=== PATIENT | female | born 1940 | race Caucasian/White ===

== ENCOUNTER 2016-05-10 19:02 | Emergency (ER) | payer MEDICARE, OTHER ==
[~2016-05-10 19:02] MED LIST: ACETAMINOPHEN500 MG PO; AMLODIPINE BESYL5 MG PO; CITALOPRAM HYDR40 MG PO; CLONAZEPAM1 MG PO; CYCLOBENZAPRINE10 MG PO; DITROPAN XL5 MG PO; DRAMAMINE LESS25 MG PO; LEVOTHYROXINE75 MCG PO; MAPAP500 M1 PO; MIRALAX EQUIVAL17 GM PO; NORCO1 TA2 PO; OXYCODONE HCL5 MG PO; PRAVACHOL40 MG; PRAVACHOL40 MG PO; SEROQUEL25 MG PO; SEROQUEL50 MG PO; SLOW-MAG PO; TRAZODONE HCL50 MG PO; VENLAFAXINE HC150 M1 PO; [UNRECOGNIZED DRUG - OTHER]
--- NOTE | 2016-05-10 20:17 | DIAGNOSTIC IMAGING REPORT ---
PROCEDURE: CT HEAD WITHOUT CONTRAST INDICATION: Left facial bruising, initial encounter TECHNIQUE: Noncontrast axial images with sagittal and coronal reformations. COMPARISON: Head CT 03/01/2015 FINDINGS: Left frontal scalp contusion. Mild cortical atrophy. Progression of moderate ventriculomegaly. Decreased attenuation of the periventricular white matter. There is no acute hemorrhage, acute CVA, mass or midline shift. Visualized sinuses and mastoids are clear. IMPRESSION: 1. Left frontal scalp contusion 2. Mild atrophy with moderate chronic ischemic changes and progression of moderate ventriculomegaly 3. Findings discussed with Edith Garcia at 08:19 p.m.[facility] Standard Time
--- NOTE | 2016-05-10 20:17 | DIAGNOSTIC IMAGING REPORT ---
PROCEDURE: CT HEAD WITHOUT CONTRAST INDICATION: Left facial bruising, initial encounter TECHNIQUE: Noncontrast axial images with sagittal and coronal reformations. COMPARISON: Head CT 03/01/2015 FINDINGS: Left frontal scalp contusion. Mild cortical atrophy. Progression of moderate ventriculomegaly. Decreased attenuation of the periventricular white matter. There is no acute hemorrhage, acute CVA, mass or midline shift. Visualized sinuses and mastoids are clear. IMPRESSION: 1. Left frontal scalp contusion 2. Mild atrophy with moderate chronic ischemic changes and progression of moderate ventriculomegaly 3. Findings discussed with Edith Garcia at 08:19 p.m.[facility] Standard Time
--- NOTE | 2016-05-10 20:21 | DIAGNOSTIC IMAGING REPORT ---
PROCEDURE: CT SINUS/FACIAL BONES W/O CONT CLINICAL INDICATION: Left facial trauma, initial encounter TECHNIQUE: Noncontrast axial images with coronal reformations. COMPARISON: None. FINDINGS: Nasal bone, mandible, zygomatic arches and pterygoid plates are intact. Paranasal sinuses are clear. The globes and orbits are unremarkable. Moderate degenerative changes of the TMJs. IMPRESSION: 1. No evidence of a facial fracture. 2. Results discussed with Edith Garcia All CT scans at this facility use dose modulation, iterative reconstruction, and/or weight-based dosing when appropriate to reduce radiation dose to as low as reasonably achievable.
--- NOTE | 2016-05-10 20:27 | DIAGNOSTIC IMAGING REPORT ---
PROCEDURE: CT CERVICAL SPINE W/O CONTRAST CLINICAL INDICATION: Left facial trauma, initial encounter TECHNIQUE: Noncontrast axial images with sagittal and coronal reformations. COMPARISON: CT cervical spine 03/01/2015 FINDINGS: There is grade 1 anterolisthesis at C2-3, C4-5 and C6-7. Severe C5-6 disc space narrowing with spur formation. There is no fracture there is moderate left C3-4, bilateral C4-5 and moderate bilateral C5-6 of foraminal stenosis. IMPRESSION: 1. No acute changes 2. Degenerative changes, most prominent at C5-6 with multilevel anterolisthesis and foraminal stenosis 3. Results discussed with Edith Garcia All CT scans at this facility use dose modulation, iterative reconstruction, and/or weight-based dosing when appropriate to reduce radiation dose to as low as reasonably achievable.
--- NOTE | 2016-05-10 20:59 | DIAGNOSTIC IMAGING REPORT ---
PROCEDURE: XR FEMUR - LEFT INDICATION: TRAUMA/INJURY, initial encounter TECHNIQUE: AP and lateral views COMPARISON: None. FINDINGS: No fracture, dislocation or suspicious osseous lesion. Normal joint spaces. Mild atherosclerosis of the femoral vessels. IMPRESSION: 1. No acute changes
--- NOTE | 2016-05-10 21:22 | ED ORDER SUMMARY ---
..... Patient: AME DENNY OrderSheet [facility] VisitID: [id number] [address] [place] [address] 75y, F Registration Date/Time: 05/10/2016 ORDER SHEET Weight: 53.9 kg (stated) Allergies: Sulfa Antibiotics GENERAL ORDERS: CT Cervical Spine wo Cont Urgent (19:37 05/10/2016 HBivens A.R.N.P.) (Ack 19:52 LTapper) (19:59 HSoule) CT Head wo Cont Urgent (19:37 05/10/2016 HBivens A.R.N.P.) (Ack 19:52 LTapper) (19:59 HSoule) CT Sinus/Facial Bones wo Cont Urgent (19:38 05/10/2016 HBivens A.R.N.P.) (Ack 19:52 LTapper) (19:59 HSoule) UA-Culture if indicated Urgent (19:38 05/10/2016 HBivens A.R.N.P.) (Ack 19:52 LTapper) (19:54 JRomanelli R.N.) Femur Left Urgent (20:31 05/10/2016 HBivens A.R.N.P.) (Ack 20:34 LTapper) (20:49 RFay) MEDICATION ORDERS: Toradol IM 60 mg (NOW) (19:38 05/10/2016 HBivens A.R.N.P.) (20:05 JRomanelli R.N.) IV FLUIDS: ORDER SHEET NOTES: [Electronically signed by Edith Garcia A.R.N.P. (22:21 05/10/2016)] [Electronically signed by Anselmo Carey R.N. (02:32 05/11/2016)] [Electronically locked/signed by Anselmo Carey R.N. (02:32 05/11/2016)]
--- NOTE | 2016-05-10 21:22 | ED NURSING NOTES ---
Clinical Report - Nurses [facility] [place] [address] 05/10/2016 19:03 Patient: AME DENNY TRIAGE Triage time 19:05. Acuity: LEVEL 3. Chief Complaint: FALL (fell off toilet 12 hours ago.). --19:10 Marilee Houston R.N. 19:06 05/10/16. BP: 201/93. HR: 80. RR: 18. O2 saturation: 95%. Temp: 99.2 F. --19:10 Marilee Houston R.N. Alert. --19:11 Marilee Houston R.N. --02:32 Anselmo Carey R.N. 19:06 05/10/16. Pain level now: 2/10. Additional comments: Bridge of nose and (L) [place]. --02:32 Anselmo Carey R.N. Weight: 53.9 kg stated. Height/Length: 63 inches Per Patient. BMI: 21.1. --19:05 Marilee Houston R.N. Medications Gabapentin Oral. --19:07 Marilee Houston R.N. Effexor XR Oral. --19:08 Marilee Houston R.N. Hydrocortisone Oral. --19:08 Marilee Houston R.N. Pravastatin Sodium Oral. --19:08 Marilee Houston R.N. Levothyroxine Sodium Oral. --19:11 Marilee Houston R.N. Allergies Sulfa Antibiotics. --19:08 Marilee Houston R.N. History Arrived by EMS. Location of injuries: left frontal area. This occurred (about 12 hours ago). No injury to the right periorbital area. SOCIAL HX: No alcohol use or drug use. --19:10 Marilee Houston R.N. Location of injuries: left hip and left thigh. --19:13 Marilee Houston R.N. PAST MEDICAL HX: Tetanus status: up-to-date. Last tetanus: (6 years ago). --20:51 Anselmo Carey R.N. PROBLEMS: Subdural Hematoma. Contusion. Fall. Dehydration. Anemia. Rotator Cuff Injury. Dementia. Near Syncope. Hypertension. Vertigo. Hyperlipidemia. Urinary Incontinence. Thyroid Disease. Depression. Anxiety Reaction. --19:06 Marilee Houston R.N. ADDITIONAL SURGERIES: Appendectomy. Gallbladder Surgery. Hysterectomy. --19:06 Marilee Houston R.N. PHYSICAL ASSESSMENT GENERAL / NEURO / PSYCH: Alert. Appears in distress. --19:11 Marilee Houston R.N. NURSING PROGRESS NOTES Call light placed in reach. Side rails up x 2. Bed placed in lowest position. Brakes of bed on. --19:11 Marilee Houston R.N. 19:20 05/10/16. Patient ID band checked for patient name, birthdate and medical record number: patient confirmed. Instructions provided to collect clean catch urine and patient verbalized understanding. Catheterized urine collected with return of yellow-colored clear urine; odor is normal; sample sent to lab for urinalysis and culture. Specimen labeled in the presence of the patient. --19:26 Anselmo Carey R.N. 20:00 05/10/2016 Toradol (Ketorolac Tromethamine) IM 60 mg given. Given in the right ventral gluteus and left ventral gluteus (split dose). Allergies verified and confirmed 5 rights. --20:05 Anselmo Carey R.N. <<STRICKEN ENTRY-- 20:13 05/10/16. Patient transported to CT by stretcher with tech. (194May 10 2016). --20:13 Anselmo Carey R.N. --END STRIKE>> Correction --02:27 Anselmo Carey R.N. 20:05. Patient returned from CT by stretcher with tech. --20:14 Anselmo Carey R.N. 19:45. Patient transported to CT by stretcher with tech. (May 10 2016). --02:28 Anselmo Carey R.N. DISPOSITION / DISCHARGE 21:30 05/10/16. BP: 168/88. HR: 84. RR: 18. O2 saturation: 97% on room air. Temp: 99.2 F (oral). Pain level now: 05/23. --02: Anselmo Carey R.N. Departure time: 2139. --: Anselmo Carey R.N. 21:40. Condition at departure: improved. No learning barriers present. Discharge instructions provided and reviewed with the patient and family. Reviewed medication(s) (prescription). Reviewed referral to family practice for followup. Patient verbalized understanding. Written instructions provided in [place]. The patient was discharged by the nurse practitioner. She was discharged home and accompanied by family. She left the Emergency Department in a wheelchair and via private vehicle. Family member driving. --02: Anselmo Carey R.N. Locked/Released at 05/11/2016 2:32 by Anselmo Carey R.N.
--- NOTE | 2016-05-10 21:22 | ED CLINICAL REPORT ---
Clinical Report - Physicians/Mid Levels [facility] [address] [place] [address] 05/10/2016 19:03 Patient: AME DENNY Time Seen: 1924; initial patient contact, initial documentation, patient care assumed. Arrived- By private vehicle. Historian- patient (grand daughter). HISTORY OF PRESENT ILLNESS Chief Complaint: FALL. Location of injuries- head, face, right knee and left knee and left leg. The injury occurred today. Fell. Occurred at home. ( not sure what happened, pt got up to go to bathroom, remembers being on toilet, next thing she remembers is being in bed, g-daughter found her laying in bed, in urine, c/o hurting, she suffers from chronic pain, neck, back and other joints, so wasn't sure where she was hurting from chronic pain or new injury). The patient complains of moderate pain. The patient sustained a blow to the head and complains of neck pain. The patient had loss of consciousness. (unknown). The patient was dazed (unknown). REVIEW OF SYSTEMS The patient complains of pain on weight bearing. No numbness, loss of vision, chest pain, difficulty breathing or weakness. No abdominal pain or vomiting. All systems otherwise negative, except as recorded above. PAST HISTORY See nurses notes. PROBLEMS: Subdural Hematoma. Contusion. Fall. Dehydration. Anemia. Rotator Cuff Injury. Dementia. Near Syncope. Hypertension. Vertigo. Hyperlipidemia. Urinary Incontinence. Thyroid Disease. Depression. Anxiety Reaction. --19:06 Marilee Houston RGeoffN. ADDITIONAL SURGERIES: Appendectomy. Gallbladder Surgery. Hysterectomy. --19:06 Marilee Houston R.N. SOCIAL HISTORY Never smoker. No alcohol use or drug use. No recent travel. Is a local resident. FAMILY HISTORY No significant family medical history. ADDITIONAL NOTES The nursing notes have been reviewed with agreement regarding the chief complaint, HPI, ROS, PMH and patient medications and allergies. PHYSICAL EXAM Vital Signs: 05/10/2016 19:06 BP: 201/93. HR: 80. RR: 18. O2 saturation: 95%. Temp: 99.2 F. Have been reviewed as abnormal and appear to be correct. Hypertensive. Heart rate normal. Respiratory rate normal. Temperature normal. Oxygen saturation normal. Appearance: Alert. Oriented X3. No acute distress. Head: Forehead: mild tenderness and swelling and medium sized ecchymosis of the upper left side of the forehead. No erythema, laceration, abrasion, puncture wound or foreign body. No deformity. Eyes: Pupils equal, round and reactive to light. EOM intact. Right periorbital area: small ecchymosis of the medial aspect and infraorbital area of the periorbital area. No erythema, puncture wound or foreign body. No tenderness, swelling, laceration, abrasion or deformity. No entrapment of extraocular muscles or gaze palsy. ENT: No dental injury. Pharynx normal. Nose: mild tenderness and swelling and superficial 0.5 cm laceration involving the bridge of the nose (contusion, lac requires no closure, no active bleeding). No abrasion, puncture wound or deformity over the nose. No erythema, epistaxis or septal hematoma. Neck: Painless ROM. Non-tender. CVS: Heart sounds normal. Pulses normal. Respiratory: Breath sounds normal. Chest nontender. Abdomen: No visible injury. Soft and nontender. Back: No tenderness. ROM normal. Skin: Skin intact. Skin warm and dry. Normal skin color. Normal skin turgor. Extremities: Abnormal inspection. Extremities not atraumatic. Right elbow: small ecchymosis located in the area of the olecranon. Neurovascular intact distally. (dime size contusion). No erythema, tenderness, swelling, laceration or abrasion. No puncture wound, foreign body or deformity. No joint effusion or limitation in ROM. Pelvis stable. Left thigh: mild tenderness located in the upper and mid thigh. Neurovascular intact distally. No erythema, swelling, laceration, abrasion or ecchymosis. No puncture wound, foreign body or deformity. Right knee: small abrasion located in the patella. Neurovascular intact distally. No ligamentous laxity present. No joint effusion. No erythema, tenderness, swelling, laceration or ecchymosis. No puncture wound, foreign body or deformity. No limitation in ROM. No lower extremity edema. Neuro: Oriented X 3. No motor deficit. No sensory deficit. LABS, X-RAYS, AND EKG X-Rays: Left femur negative. Lt Femur X-ray: (IMPRESSION: 1. No acute changes Electronically Final signed by:Darrion Interiano MD 05/10/2016 8:59:23 PM). CT C-Spine: No acute disease. (IMPRESSION: 1. No acute changes 2. Degenerative changes, most prominent at C5-6 with multilevel anterolisthesis and foraminal stenosis 3. Results discussed with Edith Garcia All CT scans at this facility use dose modulation, iterative reconstruction, and/or weight-based dosing when appropriate to reduce radiation dose to as low as reasonably achievable. Electronically Final signed by:Darrion Interiano MD 05/10/2016 8:27:37 PM Technologist: VIVIAN). The study was interpreted by the radiologist and discussed with the radiologist. CT Head: No acute disease. (IMPRESSION: 1. Left frontal scalp contusion 2. Mild atrophy with moderate chronic ischemic changes and progression of moderate ventriculomegaly 3. Findings discussed with Edith Garcia at 08:19 p.m., [place] Standard Time Electronically Final signed by:Darrion Interiano MD 05/10/2016 8:17:10 PM). The study was interpreted by the radiologist and discussed with the radiologist. Laboratory Tests: UA-Culture if indicated: (MELLY: 05/10/2016 19:15) ( MsgRcvd 05/10/2016 20:17) Final results Test Result Flag Units (Reference) URINE COLOR YELLOW URINE APPEARANCE SL CLOUDY URINE GLUCOSE NEGATIVE (NEGATIVE) URINE BILIRUBIN NEGATIVE (NEGATIVE) URINE KETONE NEGATIVE (NEGATIVE) URINE SPECIFIC GRAVITY 1.020 (1.010-1.030) URINE PH 5.5 (5.0-8.0) URINE PROTEIN 1+ (NEGATIVE) URINE UROBILINOGEN 0.2 EU/dL (0.2-1.0) URINE NITRITE POSITIVE (NEGATIVE) URINE BLOOD NEGATIVE (NEGATIVE) URINE LEUK ESTERASE NEGATIVE (NEGATIVE) URINE RBC NONE SEEN rbc/hpf (0-1) URINE WBC 1-3 wbc/hpf (0-1) URINE EPITHELIAL CELLS 0-1 EPI/hpf (0-5) URINE BACTERIA MANY (4+) (NONE SEEN) URINE COMMENT CULTURE INDICATED URINE CULTURES ARE SET-UP BASED ON THE FOLLOWING CRITERIA:POSITIVE NITRITEPOSITIVE LEUKOCYTE ESTERASEGREATER THAN 10 WHITE BLOOD CELLSMODERATE (2+) OR GREATER BACTERIA . Note - Tests: (CT Face IMPRESSION: 1. No evidence of a facial fracture. 2. Results discussed with Edith Garcia All CT scans at this facility use dose modulation, iterative reconstruction, and/or weight-based dosing when appropriate to reduce radiation dose to as low as reasonably achievable. Electronically Final signed by:Darrion Interiano MD 05/10/2016 8:20:54 PM). PROGRESS AND PROCEDURES Family counseled in person regarding the patient's stable condition, test results and diagnosis. 21:08. Differential Diagnosis: Other possible considerations: fall, head injury, fx, contusions, lacs. Above considerations are based on history, physical exam, X-Ray data and other information. Differential diagnosis was discussed with patient's family. Disposition: Discharged home in good and unchanged condition (21:22). Condition: good and stable. CLINICAL IMPRESSION Acute urinary tract infection. No cystitis, pyelonephritis or hematuria. Not associated with indwelling catheter or obstruction. Multiple contusions with soft tissue hematoma to the forehead, nose, right periorbital area and right elbow.No skin abrasion. Fall. INSTRUCTIONS Apply ice for 20 minutes four times a day for two days until better. Don't apply ice directly to skin. (htn). Warnings: HEAD INJURY PRECAUTIONS: An observer must check on the patient frequently for the next 24 hours to confirm that the patient responds as expected, is not confused, has no new weakness or numbness, and has no other problems. GENERAL WARNINGS: Return or contact your physician immediately if your condition worsens or changes unexpectedly, if not improving as expected, or if other problems arise. SPECIFICALLY, return if you develop numbness or incontinence of feces (loss of bowel control). trouble breathing. Prescription Medications: Cipro 500 mg: take 1 tab orally every 12 hours for 10 days. Dispense twenty (20). No refills. Substitution is permissible. Bactrim DS 800 mg / 160 mg: Take 1 tablet orally every 12 hours for 7 days. Dispense fourteen (14). No refills. Substitution is permissible. Follow-up: Follow up with your doctor in about three days even if well. Summary of care provided to family. Understanding of the discharge instructions verbalized by family. (Electronically signed by Edith Garcia A.R.N.P. 05/10/2016 22:21)
--- NOTE | 2016-05-10 21:22 | ED NURSING NOTES ---
Clinical Report - Nurses [facility] [place] [address] 05/10/2016 19:03 Patient: AME DENNY TRIAGE Triage time 19:05. Acuity: LEVEL 3. Chief Complaint: FALL (fell off toilet 12 hours ago.). --19:10 Marilee Houston R.N. 19:06 05/10/16. BP: 201/93. HR: 80. RR: 18. O2 saturation: 95%. Temp: 99.2 F. --19:10 Marilee Houston R.N. Alert. --19:11 Marilee Houston R.N. --02:32 Anselmo Carey R.N. 19:06 05/10/16. Pain level now: 2/10. Additional comments: Bridge of nose and (L) [place]. --02:32 Anselmo Carey R.N. Weight: 53.9 kg stated. Height/Length: 63 inches Per Patient. BMI: 21.1. --19:05 Marilee Houston R.N. Medications Gabapentin Oral. --19:07 Marilee Houston R.N. Effexor XR Oral. --19:08 Marilee Houston R.N. Hydrocortisone Oral. --19:08 Marilee Houston R.N. Pravastatin Sodium Oral. --19:08 Marilee Houston R.N. Levothyroxine Sodium Oral. --19:11 Marilee Houston R.N. Allergies Sulfa Antibiotics. --19:08 Marilee Houston R.N. History Arrived by EMS. Location of injuries: left frontal area. This occurred (about 12 hours ago). No injury to the right periorbital area. SOCIAL HX: No alcohol use or drug use. --19:10 Marilee Houston R.N. Location of injuries: left hip and left thigh. --19:13 Marilee Houston R.N. PAST MEDICAL HX: Tetanus status: up-to-date. Last tetanus: (6 years ago). --20:51 Anselmo Carey R.N. PROBLEMS: Subdural Hematoma. Contusion. Fall. Dehydration. Anemia. Rotator Cuff Injury. Dementia. Near Syncope. Hypertension. Vertigo. Hyperlipidemia. Urinary Incontinence. Thyroid Disease. Depression. Anxiety Reaction. --19:06 Marilee Houston R.N. ADDITIONAL SURGERIES: Appendectomy. Gallbladder Surgery. Hysterectomy. --19:06 Marilee Houston R.N. PHYSICAL ASSESSMENT GENERAL / NEURO / PSYCH: Alert. Appears in distress. --19:11 Marilee Houston R.N. NURSING PROGRESS NOTES Call light placed in reach. Side rails up x 2. Bed placed in lowest position. Brakes of bed on. --19:11 Marilee Houston R.N. 19:20 05/10/16. Patient ID band checked for patient name, birthdate and medical record number: patient confirmed. Instructions provided to collect clean catch urine and patient verbalized understanding. Catheterized urine collected with return of yellow-colored clear urine; odor is normal; sample sent to lab for urinalysis and culture. Specimen labeled in the presence of the patient. --19:26 Anselmo Carey R.N. 20:00 05/10/2016 Toradol (Ketorolac Tromethamine) IM 60 mg given. Given in the right ventral gluteus and left ventral gluteus (split dose). Allergies verified and confirmed 5 rights. --20:05 Anselmo Carey R.N. <<STRICKEN ENTRY-- 20:13 05/10/16. Patient transported to CT by stretcher with tech. (194May 10 2016). --20:13 Anselmo Carey R.N. --END STRIKE>> Correction --02:27 Anselmo Carey R.N. 20:05. Patient returned from CT by stretcher with tech. --20:14 Anselmo Carey R.N. 19:45. Patient transported to CT by stretcher with tech. (May 10 2016). --02:28 Anselmo Carey R.N. DISPOSITION / DISCHARGE 21:30 05/10/16. BP: 168/88. HR: 84. RR: 18. O2 saturation: 97% on room air. Temp: 99.2 F (oral). Pain level now: 05/23. --02: Anselmo Carey R.N. Departure time: 2139. --: Anselmo Carey R.N. 21:40. Condition at departure: improved. No learning barriers present. Discharge instructions provided and reviewed with the patient and family. Reviewed medication(s) (prescription). Reviewed referral to family practice for followup. Patient verbalized understanding. Written instructions provided in [place]. The patient was discharged by the nurse practitioner. She was discharged home and accompanied by family. She left the Emergency Department in a wheelchair and via private vehicle. Family member driving. --02: Anselmo Carey R.N. Locked/Released at 05/11/2016 2:32 by Anselmo Carey R.N.
--- NOTE | 2016-05-10 21:22 | ED ORDER SUMMARY ---
..... Patient: AME DENNY OrderSheet [facility] VisitID: [id number] [address] [place] [address] 75y, F Registration Date/Time: 05/10/2016 ORDER SHEET Weight: 53.9 kg (stated) Allergies: Sulfa Antibiotics GENERAL ORDERS: CT Cervical Spine wo Cont Urgent (19:37 05/10/2016 HBivens A.R.N.P.) (Ack 19:52 LTapper) (19:59 HSoule) CT Head wo Cont Urgent (19:37 05/10/2016 HBivens A.R.N.P.) (Ack 19:52 LTapper) (19:59 HSoule) CT Sinus/Facial Bones wo Cont Urgent (19:38 05/10/2016 HBivens A.R.N.P.) (Ack 19:52 LTapper) (19:59 HSoule) UA-Culture if indicated Urgent (19:38 05/10/2016 HBivens A.R.N.P.) (Ack 19:52 LTapper) (19:54 JRomanelli R.N.) Femur Left Urgent (20:31 05/10/2016 HBivens A.R.N.P.) (Ack 20:34 LTapper) (20:49 RFay) MEDICATION ORDERS: Toradol IM 60 mg (NOW) (19:38 05/10/2016 HBivens A.R.N.P.) (20:05 JRomanelli R.N.) IV FLUIDS: ORDER SHEET NOTES: [Electronically signed by Edith Garcia A.R.N.P. (22:21 05/10/2016)] [Electronically signed by Anselmo Carey R.N. (02:32 05/11/2016)] [Electronically locked/signed by Anselmo Carey R.N. (02:32 05/11/2016)]
--- NOTE | 2016-05-11 02:33 | ED MED RECONCILIATION SUMMARY ---
Patient: AME DNENY Medication Reconciliation Report [facility] VisitID: [id number] [address] [place] [address] 75y, F Registration Date/Time: 05/10/2016 Weight: 53.9 kg Height/Length: 63 in. BMI: 21.1 ALLERGIES: Sulfa Antibiotics The patient's Home Medications are listed below: THE FOLLOWING MEDICATIONS NEED TO BE RECONCILED: Effexor XR Oral Gabapentin Oral Hydrocortisone Oral Levothyroxine Sodium Oral Pravastatin Sodium Oral The source(s) of the original Home Medication information: Not obtained. The following Medications were given to the patient in the Emergency Department: Toradol [IM] IM 60 mg, administered: 05/10/2016 8:00:00 PM The following Medications were prescribed to the patient: Cipro 500 mg: take 1 tab orally every 12 hours for 10 days. Dispense twenty (20). No refills. Substitution is permissible. -- Edith Garcia, Fernando.R.N.P. Bactrim DS 800 mg / 160 mg: Take 1 tablet orally every 12 hours for 7 days. Dispense fourteen (14). No refills. Substitution is permissible. -- Edith Garcia A.R.N.P.
--- NOTE | 2016-05-11 02:33 | ED MAR SUMMARY ---
..... Medication Administration Record [facility] [address] [place] [address] Patient: AME DENNY Visit ID: [id number] 75y, F Weight: 53.9 kg Height/Length: 63 in BMI: 21.1 ALLERGIES: Sulfa Antibiotics Given 20:00 05/10/2016 Anselmo Carey R.N. Medication Administered: TORADOL [IM] (KETOROLAC TROMETHAMINE), Dose: 60 mg IM. Medication Ordered: Toradol IM 60 mg (NOW).
--- NOTE | 2016-05-11 02:33 | ED MAR SUMMARY ---
..... Medication Administration Record [facility] [address] [place] [address] Patient: AME DENNY Visit ID: [id number] 75y, F Weight: 53.9 kg Height/Length: 63 in BMI: 21.1 ALLERGIES: Sulfa Antibiotics Given 20:00 05/10/2016 Anselmo Carey R.N. Medication Administered: TORADOL [IM] (KETOROLAC TROMETHAMINE), Dose: 60 mg IM. Medication Ordered: Toradol IM 60 mg (NOW).
--- NOTE | 2016-05-11 02:33 | ED DISCHARGE INSTRUCTIONS ---
Patient: AME DENNY General Instructions [facility] VisitID: [id number] [address] [place] [address] 75y, F Registration Date/Time: 05/10/2016 Acute urinary tract infection. No cystitis, pyelonephritis or hematuria. Not associated with indwelling catheter or obstruction. Multiple contusions with soft tissue hematoma to the forehead, nose, right periorbital area and right elbow.No skin abrasion. Fall. INSTRUCTIONS Apply ice for 20 minutes four times a day for two days until better. Don't apply ice directly to skin. (htn). Warnings: HEAD INJURY PRECAUTIONS: An observer must check on the patient frequently for the next 24 hours to confirm that the patient responds as expected, is not confused, has no new weakness or numbness, and has no other problems. GENERAL WARNINGS: Return or contact your physician immediately if your condition worsens or changes unexpectedly, if not improving as expected, or if other problems arise. SPECIFICALLY, return if you develop numbness or incontinence of feces (loss of bowel control). trouble breathing. Prescription Medications: Cipro 500 mg: take 1 tab orally every 12 hours for 10 days. Dispense twenty (20). No refills. Substitution is permissible. Bactrim DS 800 mg / 160 mg: Take 1 tablet orally every 12 hours for 7 days. Dispense fourteen (14). No refills. Substitution is permissible. Follow-up: Follow up with your doctor in about three days even if well. Summary of care provided to family. Understanding of the discharge instructions verbalized by family. ADDITIONAL INFORMATION Fall, Uncertain Cause You have had a fall today. but the cause of your fall is not certain. Falls can occur due to slipping, tripping or losing your balance. A fall can also occur from a fainting spell or seizure. Because the cause of your fall today is not certain, it is possible that a fainting spell or seizure was the cause. This means that it could happen again, without warning. If you fall again, without a cause, then you should return to this facility promptly to have further tests. Otherwise, follow up with your doctor as explained below. Home Care: 1) Rest today and resume your normal activities as soon as you are feeling back to normal. It is best to remain with someone who can check on you for the next 24 hours to watch for another episode of falling. 2) If you were injured during the fall, follow the advice from your doctor regarding care of your injury. 3) If you become light-headed or dizzy, lie down immediately or sit and lean forward with your head down. 4) As a precaution, do not drive a car or operate dangerous equipment, do not take a bath alone (use a shower instead) and do not swim alone until you see your doctor. A condition causing fainting or seizures must be ruled out before resuming these activities. 5)You may use acetaminophen (Tylenol) or ibuprofen (Motrin, Advil) to control pain, unless another pain medicine was prescribed. [ NOTE : If you have chronic liver or kidney disease or ever had a stomach ulcer or GI bleeding, talk with your doctor before using these medicines.] 6) Keep your appointments for any further testing that may have been scheduled for you. Follow Up: Unless, given other advice, call your doctor on the next office day to advise of your fall and to schedule an appointment. Get Prompt Medical Attention if any of the following occur: -- Another unexplained fall -- Dizziness, fainting or seizure -- Severe headache -- Chest pain or shortness of breath -- Palpitations (very rapid or very slow or irregular heart beat) -- Blood in vomit, stools (black or red color) -- Weakness of an arm or leg or one side of the face -- Difficulty with speech or vision Contusion,Soft Tissue You have a CONTUSION, which is a bruise with swelling and some bleeding under the skin. There are no broken bones. This injury takes a few days to a few weeks to heal. Home Care: 1) Keep the injured part elevated to reduce pain and swelling. This is especially important during the first 48 hours. 2) Make an ice pack (ice cubes in a plastic bag, wrapped in a towel) and apply for 20 minutes every 1-2 hours the first day. Continue this 3-4 times a day until the pain and swelling goes away. 3) You may use acetaminophen (Tylenol) or ibuprofen (Motrin, Advil) to control pain, unless another pain medicine was prescribed. [ NOTE : If you have chronic liver or kidney disease or ever had a stomach ulcer or GI bleeding, talk with your doctor before using these medicines.] Follow Up with your doctor or this facility if you are not improving within the next THREE days. [NOTE: If X-rays were taken, they will be reviewed by a radiologist. You will be notified of any new findings that may affect your care.] Get Prompt Medical Attention if any of the following occur: -- Pain or swelling increases -- Injured arm or leg becomes cold, blue, numb or tingly -- Redness, warmth or drainage from the skin Bladder Infection,Female (Adult) A bladder infection ("cystitis" or "UTI") usually causes a constant urge to urinate and a burning when passing urine. Urine may be cloudy, smelly or dark. There may be pain in the lower abdomen. A bladder infection occurs when bacteria from the vaginal area enter the bladder opening (urethra). This can occur from sexual intercourse, wearing tight clothing, dehydration and other factors. Home Care: Drink lots of fluids (at least 6-8 glasses a day, unless you must restrict fluids for other medical reasons). This will force the medicine into your urinary system and flush the bacteria out of your body. Avoid sexual intercourse until your symptoms are gone. Avoid caffeine, alcohol and spicy foods. These can irritate the bladder. A bladder infection is treated with antibiotics. You may also be given Pyridium (generic = phenazopyridine) to reduce the burning sensation. This medicine will cause your urine to become a bright orange color. The orange urine may stain clothing. You may wear a pad or panty-liner to protect clothing. Preventing Future Infections: Always wipe from front to back after a bowel movement. Keep the genital area clean and dry. Drink plenty of fluids each day to avoid dehydration. Both sexual partners should wash before intercourse. Urinate right after intercourse to flush out the bladder. Wear cotton underwear and cotton-lined panty hose; avoid tight-fitting pants. If you are on control pills and are having frequent bladder infections, discuss with your doctor. Follow Up: Return to this facility or see your doctor if ALL symptoms are not gone after three days of treatment. Get Prompt Medical Attention if any of the following occur: Fever of 100.4F (38C) or higher, or as directed by your healthcare provider No improvement by the third day of treatment Increasing back or abdominal pain Repeated vomiting; unable to keep medicine down Weakness, dizziness or fainting Vaginal discharge Pain, redness or swelling in the labia (outer vaginal area) Head Injury, No Wake-Up (Adult) You have had a head injury. It does not appear serious at this time. Symptoms of a more serious problem (concussion, bruising, or bleeding in the brain) may appear later. Therefore, watch for the WARNING SIGNS listed below. Home Care: Your healthcare provider will tell you whether its okay to drive. If so, you can drive yourself home. For the next day or so, be careful when driving or using heavy machinery until you are sure you have no delayed symptoms. During the next 24 hours someone must stay with you to check for the signs below. It is not necessary to stay awake or be awakened during the night. If you have swelling of the face or scalp, apply an ice pack (ice cubes in a plastic bag, wrapped in a towel) for 20 minutes. Do this every 1-2 hours until the swelling starts to go down. Do not use aspirin or ibuprofen (Motrin, Advil) after a head injury.You may use acetaminophen (Tylenol)to control pain, unless another pain medicine was prescribed. [NOTE: If you have chronic liver or kidney disease or ever had a stomach ulcer or GI bleeding, talk with your doctor before using these medicines.] For the next 24 hours: Do not take alcohol, sedatives or medicines that make you sleepy. Avoid strenuous activities. No lifting or straining. If you have had any symptoms of a concussion today (nausea, vomiting, dizziness, confusion, headache, memory loss or if you were knocked out), do not return to sports or any activity that could result in another head injury until all symptoms are gone and you have been cleared by your doctor. A second head injury before fully recovering from the first one can lead to serious brain injury. Follow Up with your doctor if symptoms are not improving after 24 hours, or as directed. [NOTE: A radiologist will review any X-rays or CT scans that were taken. We will notify you of any new findings that may affect your care.] Get Prompt Medical Attention if any of the followingWARNING SIGNS occur: Repeated vomiting Severe or worsening headache or dizziness Unusual drowsiness, or unable to awaken as usual Confusion or change in behavior or speech, memory loss, blurred vision Convulsion (seizure) Increasing scalp or face swelling Redness, warmth or pus from the swollen area Fluid drainage or bleeding from the nose or ears Ciprofloxacin Hydrochloride Oral tablet What is this medicine? CIPROFLOXACIN (sip jose FLOX a sin) is a quinolone antibiotic. It is used to treat certain kinds of bacterial infections. It will not work for colds, flu, or other viral infections. How should I use this medicine? Take this medicine by mouth with a glass of water. Follow the directions on the prescription label. Take your medicine at regular intervals. Do not take your medicine more often than directed. Take all of your medicine as directed even if you think your are better. Do not skip doses or stop your medicine early. You can take this medicine with food or on an empty stomach. It can be taken with a meal that contains dairy or calcium, but do not take it alone with a dairy product, like milk or yogurt or calcium-fortified juice. A special MedGuide will be given to you by the pharmacist with each prescription and refill. Be sure to read this information carefully each time. Talk to your real estate executive assistant regarding the use of this medicine in children. Special care may be needed. What side effects may I notice from receiving this medicine? Side effects that you should report to your doctor or health child day care teacher as soon as possible: - allergic reactions like skin rash, itching or hives, swelling of the face, lips, or tongue - breathing problems - confusion, nightmares or hallucinations - feeling faint or lightheaded, falls - irregular heartbeat - joint, muscle or tendon pain or swelling - pain or trouble passing urine -persistent headache with or without blurred vision - redness, blistering, peeling or loosening of the skin, including inside the mouth - seizure - unusual pain, numbness, tingling, or weakness Side effects that usually do not require medical attention (report to your doctor or health child day care teacher if they continue or are bothersome): - diarrhea - nausea or stomach upset - white patches or sores in the mouth What may interact with this medicine? Do not take this medicine with any of the following medications: cisapride droperidol terfenadine tizanidine This medicine may also interact with the following medications: antacids caffeine cyclosporin didanosine (ddI) buffered tablets or powder medicines for diabetes medicines for inflammation like ibuprofen, naproxen methotrexate multivitamins omeprazole phenytoin probenecid sucralfate theophylline warfarin What if I miss a dose? If you miss a dose, take it as soon as you can. If it is almost time for your next dose, take only that dose. Do not take double or extra doses. Where should I keep my medicine? Keep out of the reach of children. Store at room temperature below 30 degrees C (86 degrees F). Keep container tightly closed. Throw away any unused medicine after the expiration date. What should I tell my health care provider before I take this medicine? They need to know if you have any of these conditions: -bone problems -cerebral disease -joint problems -irregular heartbeat -kidney disease -liver disease -myasthenia gravis -seizure disorder -tendon problems -an unusual or allergic reaction to ciprofloxacin, other antibiotics or medicines, foods, dyes, or preservatives - or trying to get -breast-feeding What should I watch for while using this medicine? Tell your doctor or health child day care teacher if your symptoms do not improve. Do not treat diarrhea with over the counter products. Contact your doctor if you have diarrhea that lasts more than 2 days or if it is severe and watery. You may get drowsy or dizzy. Do not drive, use machinery, or do anything that needs mental alertness until you know how this medicine affects you. Do not stand or sit up quickly, especially if you are an older patient. This reduces the risk of dizzy or fainting spells. This medicine can make you more sensitive to the sun. Keep out of the sun. If you cannot avoid being in the sun, wear protective clothing and use sunscreen. Do not use sun lamps or tanning beds/booths. Avoid antacids, aluminum, calcium, iron, magnesium, and zinc products for 6 hours before and 2 hours after taking a dose of this medicine. Sulfamethoxazole, Trimethoprim Oral tablet What is this medicine? SULFAMETHOXAZOLE; TRIMETHOPRIM or SMX-TMP (suhl fuh meth OK sue zohl; trye METH oh prim) is a combination of a sulfonamide antibiotic and a second antibiotic, trimethoprim. It is used to treat or prevent certain kinds of bacterial infections. It will not work for colds, flu, or other viral infections. How should I use this medicine? Take this medicine by mouth with a full glass of water. Follow the directions on the prescription label. Take your medicine at regular intervals. Do not take it more often than directed. Do not skip doses or stop your medicine early. Talk to your real estate executive assistant regarding the use of this medicine in children. Special care may be needed. This medicine has been used in children as young as 2 months of age. What side effects may I notice from receiving this medicine? Side effects that you should report to your doctor or health child day care teacher as soon as possible: allergic reactions like skin rash or hives, swelling of the face, lips, or tongue breathing problems fever or chills, sore throat irregular heartbeat, chest pain joint or muscle pain pain or difficulty passing urine red pinpoint spots on skin redness, blistering, peeling or loosening of the skin, including inside the mouth unusual bleeding or bruising unusually weak or tired yellowing of the eyes or skin Side effects that usually do not require medical attention (report to your doctor or health child day care teacher if they continue or are bothersome): diarrhea dizziness headache loss of appetite nausea, vomiting nervousness What may interact with this medicine? Do not take this medicine with any of the following medications: aminobenzoate potassium dofetilide metronidazole This medicine may also interact with the following medications: CURTIS inhibitors like benazepril, enalapril, lisinopril, and ramipril cyclosporine digoxin diuretics indomethacin medicines for diabetes methenamine methotrexate phenytoin potassium supplements pyrimethamine sulfinpyrazone tricyclic antidepressants warfarin What if I miss a dose? If you miss a dose, take it as soon as you can. If it is almost time for your next dose, take only that dose. Do not take double or extra doses. Where should I keep my medicine? Keep out of the reach of children. Store at room temperature between 20 to 25 degrees C (68 to 77 degrees F). Protect from light. Throw away any unused medicine after the expiration date. What should I tell my health care provider before I take this medicine? They need to know if you have any of these conditions: anemia asthma being treated with anticonvulsants if you frequently drink alcohol containing drinks kidney disease liver disease low level of folic acid or [id number] dehydrogenase poor nutrition or malabsorption porphyria severe allergies thyroid disorder an unusual or allergic reaction to sulfamethoxazole, trimethoprim, sulfa drugs, other medicines, foods, dyes, or preservatives or trying to get breast-feeding What should I watch for while using this medicine? Tell your doctor or health child day care teacher if your symptoms do not improve. Drink several glasses of water a day to reduce the risk of kidney problems. Do not treat diarrhea with over the counter products. Contact your doctor if you have diarrhea that lasts more than 2 days or if it is severe and watery. This medicine can make you more sensitive to the sun. Keep out of the sun. If you cannot avoid being in the sun, wear protective clothing and use a sunscreen. Do not use sun lamps or tanning beds/booths. You have been given the following additional information: Fall, Uncertain Cause Contusion, Soft Tissue Bladder Infection, Female (Adult) HEAD INJURY, No Wake-Up (Adult) Ciprofloxacin Hydrochloride Oral tablet Sulfamethoxazole, Trimethoprim Oral tablet (Electronically signed by Edith Garcia A.R.N.P. 05/10/2016 22:21)
--- NOTE | 2016-05-11 02:33 | ED MED RECONCILIATION SUMMARY ---
Patient: AME DENNY Medication Reconciliation Report [facility] VisitID: [id number] [address] [place] [address] 75y, F Registration Date/Time: 05/10/2016 Weight: 53.9 kg Height/Length: 63 in. BMI: 21.1 ALLERGIES: Sulfa Antibiotics The patient's Home Medications are listed below: THE FOLLOWING MEDICATIONS NEED TO BE RECONCILED: Effexor XR Oral Gabapentin Oral Hydrocortisone Oral Levothyroxine Sodium Oral Pravastatin Sodium Oral The source(s) of the original Home Medication information: Not obtained. The following Medications were given to the patient in the Emergency Department: Toradol [IM] IM 60 mg, administered: 05/10/2016 8:00:00 PM The following Medications were prescribed to the patient: Cipro 500 mg: take 1 tab orally every 12 hours for 10 days. Dispense twenty (20). No refills. Substitution is permissible. -- Edith Garcia, Fernando.R.N.P. Bactrim DS 800 mg / 160 mg: Take 1 tablet orally every 12 hours for 7 days. Dispense fourteen (14). No refills. Substitution is permissible. -- Edith Garcia A.R.N.P.
== END 2016-05-10 21:40 | disposition home or self-care (01) ==
LOC: ED SRH 19:02
DX: N39.0 Urinary tract infection, site not specified (principal); S00.83XA Contusion of other part of head, initial encounter; S00.33XA Contusion of nose, initial encounter; S05.11XA Contusion of eyeball and orbital tissues, right eye, initial encounter; S50.01XA Contusion of right elbow, initial encounter; W18.11XA Fall from or off toilet without subsequent striking against object, initial encounter; Y93.9 Activity, unspecified; Y92.9 Unspecified place or not applicable; Y99.9 Unspecified external cause status; I10 Essential (primary) hypertension

== ENCOUNTER 2016-05-12 10:54 | Emergency (ER) | payer OTHER ==
--- NOTE | 2016-05-12 11:58 | DIAGNOSTIC IMAGING REPORT ---
PROCEDURE: CT HEAD WITHOUT CONTRAST INDICATION: FALL, SYNCOPE, RECENT FALL 2 DAYS AGO TECHNIQUE: Axial CT images were acquired through the head. Coronal and sagittal reformations were created. COMPARISON: Head CT 05/10/2016 and 03/01/2015 FINDINGS: Left frontal scalp contusion. Mild cortical atrophy. Progression of moderate ventriculomegaly. Decreased attenuation of the periventricular white matter. There is no acute hemorrhage, acute CVA, mass or midline shift. Visualized sinuses and mastoids are clear. IMPRESSION: 1. Left frontal scalp contusion 2. Mild atrophy with moderate chronic ischemic changes and progression of moderate ventriculomegaly 3. Findings discussed with Dr. Banda at noon All CT scans at this facility use dose modulation, iterative reconstruction, and/or weight-based dosing when appropriate to reduce radiation dose to as low as reasonably achievable.
--- NOTE | 2016-05-12 12:03 | DIAGNOSTIC IMAGING REPORT ---
PROCEDURE: XR CHEST 2 VIEW INDICATION: FALL AND SYNCOPE TECHNIQUE: PA and lateral views. COMPARISON: Chest 08/09/14 FINDINGS: Lungs are clear. Heart and mediastinum are normal. Thorax is normal. IMPRESSION: 1. Negative chest.
--- NOTE | 2016-05-12 13:50 | ED ORDER SUMMARY ---
..... Patient: MAE DENNY OrderSheet [facility] VisitID: [id number] [place] [address] 75y, F Registration Date/Time: 05/12/2016 ORDER SHEET Weight: 58.9 kg (estimated) Allergies: Sulfa Antibiotics GENERAL ORDERS: Chest 2V Urgent (11:16 05/12/2016 Justin Ignram) (Ack 11:44 LTapper) (12:[address] Head wo Cont Urgent (11:05/12/2016 Justin Ingram) (Ack 11:44 LTapper) (12:06 HOShaughnessy R.N.) Body And Frame Man (Continuous) (syncope) (11:05/12/2016 Justin Ingram) (12:06 HOShaughnessy R.N.) CBC w Diff Urgent (11:05/12/2016 Justin Ingram) (Ack 11:44 LTapper) (12:06 HOShaughnessy R.N.) CMP Urgent (11:05/12/2016 Justin Ingram) (Ack 11:44 LTapper) (12:06 HOShaughnessy R.N.) PT with INR Urgent (11:05/12/2016 Justin Ingram) (Ack 11:44 LTapper) (12:06 HOShaughnessy R.N.) PTT Urgent (11:05/12/2016 Justin Ingram) (Ack 11:44 LTapper) (12:06 HOShaughnessy R.N.) UA-Culture if indicated Urgent (11:05/12/2016 Justin Ingram) (Ack 11:44 LTapper) (12:06 HOSnanetteughnessy R.N.) TSH Urgent (:05/12/2016 Justin Ingram) (Ack 11:44 LTapper) (12:06 HOShaughnessy R.N.) Pulse oximeter (:05/12/2016 Justin Ingram) (12:06 HOShaughnessy R.N.) EKG - ER Stat (:17 05/12/2016 Justin Ingram) (Ack 11:44 LTapper) (11:50 Rizwan Bravo.NGeoff) MEDICATION ORDERS: Hydrocodone-APAP PO 5/325 mg (NOW, HIGH ALERT MEDICATION) (14:53 05/12/2016 Justin Ingram) (15:17 Rizwan Elena) IV FLUIDS: IV NS : initial bolus 1000 mL (1000 mL/hr), then none - for X1 (NOW) (11:17 05/12/2016 Justin Ingram) (12:00 Rizwan GomezNGeoff) Morphine IV 2 mg (once now. may repeat once for pain > 5/10) (11:17 05/12/2016 Justin Ingram) (12:26 HOSinés R.N.) ORDER SHEET NOTES: [Electronically signed by Andi Dela Cruz R.N. (16:11 05/12/2016)] [Electronically signed by Sarkis Banda Dr. (17:24 05/14/2016)] [Electronically locked/signed by Andi Dela Cruz R.N. (16:11 05/12/2016)]
--- NOTE | 2016-05-12 13:50 | ED CLINICAL REPORT ---
Clinical Report - Physicians/Mid Levels [facility] [address] [place] [address] 05/12/2016 10:54 Patient: AME DENNY Arrived- By private vehicle. Historian- patient. HISTORY OF PRESENT ILLNESS Chief Complaint: PASSED OUT. Patient was last known well (prior to today). This occurred today. Is no longer seizing. She has recovered. Post-ictal in the emergency department. Seizure was witnessed. Had a single isolated seizure. Seizure activity was brief and lasted seconds. The patient lost consciousness. No incontinence. Post-ictally has been obtunded and had confusion and weakness. No injuries noted. Did not recently change anticonvulsant medication or miss recent dose of anticonvulsant. Has not recently been ill. No recent sleep deprivation or alcohol recently. The granddaughter who is the primary caregiver at this point in time states that patient was recently here in the hospital for a ground-level fall. Patient with ecchymosis to the forehead as well as Wilder signon initial examination which is unchanged from the fall that she sustained. No new trauma noted her granddaughter. Patient was assisted to the ground by the granddaughter on today's incident. Granddaughter reports bilateral leg shaking with positive loss of consciousness. No tongue biting Unable to assess for loss of continence secondary to patient being incontinent at baseline. Similar symptoms previously: None. Recent medical care: Not recently seen/assessed. REVIEW OF SYSTEMS No skin rash. All systems otherwise negative, except as recorded above. PAST HISTORY See nurses notes. Seizures had one in the past following a head injury. not on antiepileptics. Medications: Effexor XR Oral. Gabapentin Oral. Hydrocortisone Oral. Levothyroxine Sodium Oral. Pravastatin Sodium Oral. Allergies: Sulfa Antibiotics. SOCIAL HISTORY Never smoker. No alcohol use or drug use. Is a local resident. FAMILY HISTORY Negative. ADDITIONAL NOTES The nursing notes have been reviewed. PHYSICAL EXAM Vital Signs: 05/12/2016 10:55 BP: 75/43. HR: 105. RR: 16. O2 saturation: 100%. Temp: 98.4 F. Pain level now: 5/10. Blood pressure normal. Oxygen saturation normal. Appearance: No acute distress. Appears post-ictal. ( sleepy). Eyes: Pupils equal, round and reactive to light. No nystagmus. Extraocular movements normal. ENT: Normal ENT inspection. TM's normal. Dry mucous membranes present. Pharynx normal. (no hemotympanum. Bilateral raccoon eyes. Ecchymosis to the left forehead which appears to be subacute). Neck: Meningeal signs present. Normal inspection. Neck supple. CVS: Normal heart rate and rhythm. Heart sounds normal. Pulses normal. Respiratory: No respiratory distress. Breath sounds normal. No rales, wheezes or rhonchi. Abdomen: Soft and nontender. No organomegaly. Back: Normal inspection. Skin: Skin warm and dry. Normal skin color. No rash. Normal skin turgor. Extremities: Extremities exhibit normal ROM. No lower extremity edema. Neuro: No seizure activity. Mildly altered mental status. (sleepy). Speech normal. Cranial nerves normal (as tested). No cerebellar findings. No motor deficit. No sensory deficit. Reflexes normal. LABS, X-RAYS, AND EKG EKG: Normal sinus rhythm. Rate: 98. Normal P waves. Normal VANGIE. Normal QRS complex. Normal axis. Normal ST and T waves, QT and QTc. The study has been interpreted contemporaneously by me. The study has been independently viewed by me. The EKG appears to be a good tracing. Chest X-ray: (PROCEDURE: XR CHEST 2 VIEW INDICATION: FALL AND SYNCOPE TECHNIQUE: PA and lateral views. COMPARISON: Chest 08/09/14 FINDINGS: Lungs are clear. Heart and mediastinum are normal. Thorax is normal. IMPRESSION: 1. Negative chest.). CT Head: (PROCEDURE: CT HEAD WITHOUT CONTRAST INDICATION: FALL, SYNCOPE, RECENT FALL 2 DAYS AGO TECHNIQUE: Axial CT images were acquired through the head. Coronal and sagittal reformations were created. COMPARISON: Head CT 05/10/2016 and 03/01/2015 FINDINGS: Left frontal scalp contusion. Mild cortical atrophy. Progression of moderate ventriculomegaly. Decreased attenuation of the periventricular white matter. There is no acute hemorrhage, acute CVA, mass or midline shift. Visualized sinuses and mastoids are clear. IMPRESSION: 1. Left frontal scalp contusion 2. Mild atrophy with moderate chronic ischemic changes and progression of moderate ventriculomegaly). Laboratory Tests: UA-Culture if indicated: (MELLY: 05/12/2016 11:20) ( [facility] 05/12/2016 12:00) Final results Test Result Flag Units (Reference) URINE COLOR YELLOW URINE APPEARANCE CLEAR URINE GLUCOSE NEGATIVE (NEGATIVE) URINE BILIRUBIN NEGATIVE (NEGATIVE) URINE KETONE NEGATIVE (NEGATIVE) URINE SPECIFIC GRAVITY 1.025 (1.010-1.030) URINE PH 6.0 (5.0-8.0) URINE PROTEIN 2+ (NEGATIVE) URINE UROBILINOGEN 0.2 EU/dL (0.2-1.0) URINE NITRITE NEGATIVE (NEGATIVE) URINE BLOOD NEGATIVE (NEGATIVE) URINE LEUK ESTERASE NEGATIVE (NEGATIVE) URINE RBC NONE SEEN rbc/hpf (0-1) URINE WBC NONE SEEN wbc/hpf (0-1) URINE EPITHELIAL CELLS NONE SEEN EPI/hpf (0-5) URINE BACTERIA FEW (1+) (NONE SEEN) URINE COMMENT CULT NOT INDICATED 2+ AMORPHOUS URATESURINE CULTURES ARE SET-UP BASED ON THE FOLLOWING CRITERIA:POSITIVE NITRITEPOSITIVE LEUKOCYTE ESTERASEGREATER THAN 10 WHITE BLOOD CELLSMODERATE (2+) OR GREATER BACTERIA CBC w Diff: (MELLY: 05/12/2016 12:10) ( [facility] [place] 05/12/2016 12:18) Final results Test Result Flag Units (Reference) WHITE BLOOD COUNT 11.6 H K/uL (4.5-11.5) RED BLOOD COUNT 4.21 M/uL (4.00-5.20) HEMOGLOBIN 12.9 gm/dL (12.0-16.0) HEMATOCRIT 40.2 % (36.0-46.0) MEAN CELL VOLUME 96 fL (80-100) MEAN CORPUSCULAR HGB 31 pg (26-34) MEAN CORPUSCULAR HGB CONC 32 g/dL (31-37) RED CELL DISTRIBUTION WIDTH 14.5 % (11.6-14.8) PLATELET COUNT 315 K/uL (150-400) LYMPH % 13.1 L % (25-40) MONO % 8.1 % (3-14) GRANULOCYTE % 78.8 (53-90) PT with INR: (MELLY: 05/12/2016 12:10) ( [facility] [place] 05/12/2016 12:35) Final results Test Result Flag Units (Reference) INR 1.0 (0.8-1.2) Low Intensity Therapy: INR 1.5-2.0 PT range 18.5-23.1Mod.Intensity Therapy: INR 2.0-3.0 PT range 23.1-31.5High Intensity Therapy: INR 2.5-3.5 PT range 27.4-35.5High Intensity Therapy 2: INR 3.0-4.0 PT range 31.5-39.3 APTT 27 SECONDS (24-34) CMP: (MELLY: 05/12/2016 12:00) ( MsgRcvd 05/12/2016 13:44) Final results Test Result Flag Units (Reference) GLUCOSE 122 H mg/dL (70-110) BUN 55 H mg/dL (7-18) CREATININE 2.2 H mg/dL (0.6-1.3) Estimated GFR 23.06 mL/min Estimated GFR- 27.95 mL/min Note: Persistent reduction over 3 months in eGFR<60 mL/min/1.73 m2 defines CKD. Patients with eGFR values>=60 mL/min/1.73 m2 may also have CKD if evidence ofpersistent proteinuria. Additional information may be foundat www.kidney.org. SODIUM 143 mmol/L (136-145) POTASSIUM 5.1 mmol/L (3.5-5.1) CHLORIDE 107 mmol/L (98-107) CARBON DIOXIDE 24 mmol/L (21-32) CALCIUM 9.2 mg/dL (8.5-10.1) TOTAL PROTEIN 7.7 g/dL (6.4-8.2) ALBUMIN 4.1 g/dL (3.3-5.0) BILIRUBIN, TOTAL 0.3 mg/dL (0.0-1.0) ALKALINE PHOSPHATASE 84 U/L (46-116) AST (SGOT) 21 U/L (15-37) ALT (SGPT) 20 U/L (12-78) THYROID STIMULATING HORMONE 0.249 L uIU/mL (0.30-3.74) . PROGRESS AND PROCEDURES Course of Care: the patient is a pleasant 75-year-old female presented for evaluation of altered mental status and possible seizure-like activity. Patient is resting in bed and in no acute distress. Patient appears nontoxic. Symptoms are likely due to dehydration following viral illness. Patient will be evaluated with chest x-ray, EKG, and laboratory studies including urinalysis, complete blood cell count, and TSH. Because the patient's head injury, would be concern for delayed head bleed from recent fall. Patient with ecchymosis to the left forehead. CT scan has been ordered. We will monitor the patient closely while here in the emergency department. Patient with mild tachycardia noted on triage. We will provide patient with IV hydration and reassess. Workup shows patient to be fluid responsive with her tachycardia. Patient appears to have recovered without any difficulty. CT scan of the head does not show any acute abnormalities or bleeds. EKG as well as laboratory studies are otherwise unremarkable. Patient likely with upper respiratory tract infection and dehydration from the incident. Patient also could've had a post concussive seizure prior to her arrival in the emergency department and there is probably a combination of all of these occurring at this time. Because the patient does not have any acute bleeds and chest x-ray does not show any acute consoli as well as patient recovering uneventfully as well as having improved vital signs, do not feel patient needs to be admitted to the hospital. Patient with nonlabored breath sounds. Patient is requesting to return home. Patient has adequate resources for outpatient care. Do not feel patient is admitted to the hospital or require further emergency department workup. Discussed with patient and caregiver diagnosis, workup, home care, follow-up, and return percussion. All questions answered. The patient and caregiver expressed understanding of these instructions and was agreeable to them. Disposition: Discharged. Condition: good. CLINICAL IMPRESSION 05/12/2016 13:48 BP: 150/80. HR: 80. RR: 16. O2 saturation: 94%. Pain level now: 0/10. Hypertensive. Oxygen saturation normal. Concussion. Loss of consciousness for one to two minutes. Seizure. Mild dehydration (acute). Generalized seizure associated with head trauma. (acute). No history of poorly controlled epilepsy, history of epilepsy that is treatment resistant or status epilepticus. Single contusion with soft tissue hematoma to the forehead. INSTRUCTIONS Warnings: GENERAL WARNINGS: Return or contact your physician immediately if your condition worsens or changes unexpectedly, if not improving as expected, or if other problems arise. Specifically return if pain, vomiting, bleeding, breathing difficulty or fever. change in behavior, worsening pain, or other concerns. Your Current Medications: CONTINUE TAKING THE FOLLOWING MEDICATIONS: Effexor XR Oral. Gabapentin Oral. Hydrocortisone Oral. Levothyroxine Sodium Oral. Pravastatin Sodium Oral. Prescription Medications: [place] 5 mg / 325 mg tablets: take 1 orally every 6 hours as needed for pain. Dispense ten (10). No refill. Substitution is permissible. Follow-up: Return to the emergency department as needed. Follow up with your doctor in three days. Reason for referral: recheck today's concerns. Summary of care provided to patient via paper. Screening today revealed the patient's blood pressure to be in the hypertensive range. Blood pressure screening was not performed during this visit because the patient has an active diagnosis of hypertension. The patient should follow up with a primary care provider for blood pressure management. Understanding of the discharge instructions verbalized by patient. Discharge instructions reviewed (grand-daughter). (Electronically signed by Sarkis Banda Dr. 05/14/2016 17:24)
--- NOTE | 2016-05-12 13:50 | ED NURSING NOTES ---
Clinical Report - Nurses [facility] [address] [place] [address] 05/12/2016 10:54 Patient: AME DENNY TRIAGE Triage time 1055 AM. Chief Complaint: ALTERED MENTAL STATUS and SYNCOPE and (weakness). Alert. No acute distress. NIECY COMA SCORE: [place] Coma Scale: 15- eyes open spontaneously (4); best verbal response- oriented x 4 (5); best motor response- obeys commands (6). --11:03 Andi Dela Cruz R.N. 10:55 05/12/16. BP: 75/43 taken on the left arm, via an automated monitor, while lying. HR: 105. RR: 16. O2 saturation: 100%. Temp: 98.4 F (oral). Pain level now: 08/20. --11:03 Andi Dela Cruz R.N. 11:03 05/12/16. BP: 98/45 taken on the right arm, via an automated monitor, while lying. HR: 104. O2 saturation: 97%. --11:04 Andi Dela Cruz R.N. Weight: 58.9 kg estimated. Height/Length: 63 inches Estimated. BMI: 23. --16:11 Andi Dela Cruz R.N. Medications Effexor XR Oral. Gabapentin Oral. Hydrocortisone Oral. Levothyroxine Sodium Oral. Pravastatin Sodium Oral. --10:58 Andi Dela Cruz R.N. Allergies Sulfa Antibiotics. --10:58 Andi Dela Cruz R.N. History Arrived by private vehicle. Historian: patient. Accompanied by family. This started just prior to arrival. ( Patient presents to the ED with symptoms of weakness and LOC. Patient experienced a ground level fall on Thursday night. Patient was seen and cleared in the ED on Thursday for ground level fall. Patient has been staying at her granddaughter's house who noticed that patient woke up significantly weaker this morning, patient stood up this morning became dizzy and had a near syncopal episode. Patient granddaughter eased patient to the floor. Patient has a history of a recent UTI.). She has had weakness. 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 Seen within the last 30 days in the ED; seen for different problems. PAST MEDICAL HX: Seizures. SOCIAL HX: Former smoker. Alcohol use. (no). History of drug use. (no). FALL RISK ASSESSMENT: Fall risk assessment completed. No fall risk identified. NUTRITIONAL RISK ASSESSMENT: The nutritional risk assessment revealed no deficiencies. FUNCTIONAL ASSESSMENT: Functional assessment: no impairments noted. LEARNING NEEDS ASSESSMENT: The learning needs assessment revealed no barriers. SKIN INTEGRITY ASSESSMENT: Skin integrity risk assessment completed. No skin integrity risk identified. --11:03 Andi Dela Cruz R.N. PROBLEMS: UTI - Urinary Tract Infection. Subdural Hematoma. Contusion. Fall. Dehydration. Anemia. Rotator Cuff Injury. Dementia. Near Syncope. Hypertension. Vertigo. Hyperlipidemia. Urinary Incontinence. Thyroid Disease. Depression. Anxiety Reaction. --10:59 Andi Dela Cruz R.N. ADDITIONAL SURGERIES: Appendectomy. Gallbladder Surgery. Hysterectomy. --10:59 Andi Dela Cruz R.N. Interventions ID band on patient. To treatment room. --11:03 Andi Dela Cruz R.N. PHYSICAL ASSESSMENT To room via stretcher. GENERAL / NEURO / PSYCH: Alert. Oriented X 4. Appears in no acute distress. Speech within normal limits. Patient appears well-nourished and neat and clean. HEENT: Pupils equal, round and reactive to light. RESPIRATORY: Respirations not labored. Breath sounds within normal limits. CVS: Normal sinus rhythm noted. ( syncope). Capillary refill less than 2 seconds. GI / : Abdomen soft and nontender. Bowel sounds within normal limits. SKIN: Skin is warm and dry. Normal skin turgor. --11:05 Andi Dela Cruz R.N. NURSING PROGRESS NOTES 11:06 05/12/2016 Site #1 started prior to arrival by EMS via IV in the left forearm with an 24g angiocath; one attempt. Saline lock flushed with 10 mL saline. --11:06 Andi Dela Cruz R.N. EKG time: (1150 AM). EKG was performed by a nurse and shown to the ED physician. --11:51 Andi Dela Cruz R.N. Checked patient name and birthdate: patient confirmed. Instructions provided to collect clean catch urine and patient verbalized understanding. Clean catch urine collected with return of yellow-colored cloudy urine; sample sent to lab for urinalysis and culture. Specimen labeled in the presence of the patient. --11:52 Andi Dela Cruz R.N. Reassurance given. --11:52 Andi Dela Cruz R.N. 12:00 05/12/2016 Started IV Fluids IV NS (Saline); bolus of 1000 mL wide open via site #1. Allergies verified and confirmed 5 rights. IV patency established. IV site checked: no pain, redness, or swelling. IV flushed thoroughly pre- and post-medication administration. --12:00 Andi Dela Cruz R.N. 12:26 05/12/2016 Morphine IV 2 mg (once now. may repeat once for pain > 5/10) was refused by patient because of headache. Andi Dela Cruz --12:26 Andi Dela Cruz R.N. 12:50 05/12/16. BP: 150/92. HR: 90. RR: 16. O2 saturation: 94%. Temp: 98.4 F (oral). Pain level now: 0/10. --12:51 Andi Dela Cruz R.N. Reassessment after fluids administered. She is calm and resting quietly. Overall patient status is improved. ( Patient resting on the bed with even and unlabored respirations. Vital signs reassessed and are stable.). --12:51 Andi Dela Cruz R.N. 13:48 05/12/16. BP: 150/80. HR: 80. RR: 16. O2 saturation: 94%. Pain level now: 0/10. --13:49 Andi Dela Cruz R.N. The patient is calm and resting quietly. Overall patient status is improved- she states feels better. GENERAL / NEURO / PSYCH: Patient is calm and cooperative. Affect appears normal. Alert. Oriented X 4. RESPIRATORY: No respiratory distress. CVS: Normal sinus rhythm noted. SKIN: Skin is warm and dry. --13:49 Andi Dela Cruz R.N. 15:17 05/12/2016 Hydrocodone-APAP (Hydrocodone-Acetaminophen) PO 5/325 mg Tablets 1 tab given. Allergies verified, confirmed 5 rights and sedative warning given to the patient. --15:17 Andi Dela Cruz R.N. DISPOSITION / DISCHARGE Condition at departure: improved. The goals identified in the patient's plan of care were met. No learning barriers present. Discharge instructions provided and reviewed with the patient. Reviewed medication(s) side effects, precautions, dosing and course information. Prescription(s) given to the patient. Patient verbalized understanding. Written instructions provided in Mongolian. The patient was discharged home and accompanied by family. She left the Emergency Department ambulatory and via private vehicle. Family member driving. FALL RISK ASSESSMENT: Fall risk assessment completed. No fall risk identified. --16:08 Andi Dela Cruz R.N. 15:12 05/12/16. BP: 150/85. HR: 80. RR: 16. O2 saturation: 100% on room air. Temp: 98.6 F (oral). Pain level now: 01/20. --16:08 Andi Dela Cruz R.N. Departure time: 1512 PM. --16:08 Andi Dela Cruz R.N. 15:12 05/12/2016 Site #1 removed upon discharge. Pressure dressing applied. --16:10 Andi Dela Cruz R.N. 15:12 05/12/2016 IV Fluids IV NS Discontinued: bag #1 infused. Total amount infused: 1000 mL. IV patency established. IV site checked: no pain, redness, or swelling. IV flushed thoroughly. --16:09 Andi Dela Cruz R.N. Locked/Released at 05/12/2016 16:11 by Andi Dela Cruz R.N.
--- NOTE | 2016-05-12 13:50 | ED ORDER SUMMARY ---
..... 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) (syncope) (11:05/12/2016 Justin Ingram) (12:06 HOShaughnessy R.N.) CBC w Diff Urgent (11:05/12/2016 Justin Ingram) (Ack 11:44 LTapper) (12:06 HOShaughnessy R.N.) CMP Urgent (11:05/12/2016 Justin Ingram) (Ack 11:44 LTapper) (12:06 HOShaughnessy R.N.) PT with INR Urgent (11:05/12/2016 Justin Ingram) (Ack 11:44 LTapper) (12:06 HOShaughnessy R.N.) PTT Urgent (11:05/12/2016 Justin Ingram) (Ack 11:44 LTapper) (12:06 HOShaughnessy R.N.) UA-Culture if indicated Urgent (11:05/12/2016 Justin Ingram) (Ack 11:44 LTapper) (12:06 HOSnanetteughnessy R.N.) TSH Urgent (:05/12/2016 Justin Ingram) (Ack 11:44 LTapper) (12:06 HOShaughnessy R.N.) Pulse oximeter (:05/12/2016 Justin Ingram) (12:06 HOShaughnessy R.N.) EKG - ER Stat (:17 05/12/2016 Justin Ingram) (Ack 11:44 LTapper) (11:50 Rizwan Bravo.NGeoff) MEDICATION ORDERS: Hydrocodone-APAP PO 5/325 mg (NOW, HIGH ALERT MEDICATION) (14:53 05/12/2016 Justin Ingram) (15:17 Rizwan Elena) IV FLUIDS: IV NS : initial bolus 1000 mL (1000 mL/hr), then none - for X1 (NOW) (11:17 05/12/2016 Justin Ingram) (12:00 Rizwan GomezNGeoff) Morphine IV 2 mg (once now. may repeat once for pain > 5/10) (11:17 05/12/2016 Justin Ingram) (12:26 HOSinés R.N.) ORDER SHEET NOTES: [Electronically signed by Andi Dela Cruz R.N. (16:11 05/12/2016)] [Electronically signed by Sarkis Banda Dr. (17:24 05/14/2016)] [Electronically locked/signed by Andi Dela Cruz R.N. (16:11 05/12/2016)]
--- NOTE | 2016-05-14 17:25 | ED MED RECONCILIATION SUMMARY ---
Patient: AME DENNY Medication Reconciliation Report [facility] VisitID: [id number] [address] [place] [address] 75y, F Registration Date/Time: 05/12/2016 Weight: 58.9 kg Height/Length: 63 in. BMI: 23.0 ALLERGIES: Sulfa Antibiotics The patient's Home Medications are listed below: CONTINUE TAKING THE FOLLOWING MEDICATIONS: Effexor XR Oral Gabapentin Oral Hydrocortisone Oral Levothyroxine Sodium Oral Pravastatin Sodium Oral The source(s) of the original Home Medication information: Not obtained. The following Medications were given to the patient in the Emergency Department: IV NS IV Fluids bolus 1000 mL wide open, administered: 05/12/2016 12:00:00 PM Hydrocodone-APAP [PO] PO 1 tab, administered: 05/12/2016 3:17:00 PM The following Medications were prescribed to the patient: [place] 5 mg / 325 mg tablets: take 1 orally every 6 hours as needed for pain. Dispense ten (10). No refill. Substitution is permissible. -- Sarkis Banda Dr.
--- NOTE | 2016-05-14 17:25 | ED MAR SUMMARY ---
..... Medication Administration Record [facility] [address] [place] [address] Patient: AME DENNY Visit ID: [id number] 75y, F Weight: 58.9 kg Height/Length: 63 in BMI: 23 ALLERGIES: Sulfa Antibiotics Start 12:00 05/12/2016 Andi Dela Cruz R.N., Stop 15:12 05/12/2016 Andi Dela Cruz R.N. Medication Administered: IV NS (SALINE), Dose: IV Fluids, Bolus: 1000 mL wide open, Site: #1 left forearm. Medication Ordered: IV NS : initial bolus 1000 mL (1000 mL/hr), then none - for X1 (NOW). Given 15:17 05/12/2016 Andi Dela Cruz R.N. Medication Administered: HYDROCODONE-APAP [PO] (HYDROCODONE-ACETAMINOPHEN), Dose: 1 tab 5/325 mg Tablets PO. Medication Ordered: Hydrocodone-APAP PO 5/325 mg (NOW, HIGH ALERT MEDICATION).
--- NOTE | 2016-05-14 17:25 | ED MED RECONCILIATION SUMMARY ---
Patient: AME DENNY Medication Reconciliation Report [facility] VisitID: [id number] [address] [place] [address] 75y, F Registration Date/Time: 05/12/2016 Weight: 58.9 kg Height/Length: 63 in. BMI: 23.0 ALLERGIES: Sulfa Antibiotics The patient's Home Medications are listed below: CONTINUE TAKING THE FOLLOWING MEDICATIONS: Effexor XR Oral Gabapentin Oral Hydrocortisone Oral Levothyroxine Sodium Oral Pravastatin Sodium Oral The source(s) of the original Home Medication information: Not obtained. The following Medications were given to the patient in the Emergency Department: IV NS IV Fluids bolus 1000 mL wide open, administered: 05/12/2016 12:00:00 PM Hydrocodone-APAP [PO] PO 1 tab, administered: 05/12/2016 3:17:00 PM The following Medications were prescribed to the patient: [place] 5 mg / 325 mg tablets: take 1 orally every 6 hours as needed for pain. Dispense ten (10). No refill. Substitution is permissible. -- Sarkis Banda Dr.
--- NOTE | 2016-05-14 17:25 | ED MAR SUMMARY ---
..... Medication Administration Record [facility] [address] [place] [address] Patient: AME DENNY Visit ID: [id number] 75y, F Weight: 58.9 kg Height/Length: 63 in BMI: 23 ALLERGIES: Sulfa Antibiotics Start 12:00 05/12/2016 Andi Dela Cruz R.N., Stop 15:12 05/12/2016 Andi Dela Cruz R.N. Medication Administered: IV NS (SALINE), Dose: IV Fluids, Bolus: 1000 mL wide open, Site: #1 left forearm. Medication Ordered: IV NS : initial bolus 1000 mL (1000 mL/hr), then none - for X1 (NOW). Given 15:17 05/12/2016 Andi Dela Cruz R.N. Medication Administered: HYDROCODONE-APAP [PO] (HYDROCODONE-ACETAMINOPHEN), Dose: 1 tab 5/325 mg Tablets PO. Medication Ordered: Hydrocodone-APAP PO 5/325 mg (NOW, HIGH ALERT MEDICATION).
--- NOTE | 2016-05-14 17:25 | ED DISCHARGE INSTRUCTIONS ---
Patient: AME DENNY General Instructions [facility] VisitID: [id number] [place] [address] 75y, F Registration Date/Time: 05/12/2016 05/12/2016 13:48 BP: 150/80. HR: 80. RR: 16. O2 saturation: 94%. Pain level now: 0/10. Hypertensive. Oxygen saturation normal. Concussion. Loss of consciousness for one to two minutes. Seizure. Mild dehydration (acute). Generalized seizure associated with head trauma. (acute). No history of poorly controlled epilepsy, history of epilepsy that is treatment resistant or status epilepticus. Single contusion with soft tissue hematoma to the forehead. INSTRUCTIONS Warnings: GENERAL WARNINGS: Return or contact your physician immediately if your condition worsens or changes unexpectedly, if not improving as expected, or if other problems arise. Specifically return if pain, vomiting, bleeding, breathing difficulty or fever. change in behavior, worsening pain, or other concerns. Your Current Medications: CONTINUE TAKING THE FOLLOWING MEDICATIONS: Effexor XR Oral. Gabapentin Oral. Hydrocortisone Oral. Levothyroxine Sodium Oral. Pravastatin Sodium Oral. Prescription Medications: [place] 5 mg / 325 mg tablets: take 1 orally every 6 hours as needed for pain. Dispense ten (10). No refill. Substitution is permissible. Follow-up: Return to the emergency department as needed. Follow up with your doctor in three days. Reason for referral: recheck today's concerns. Summary of care provided to patient via paper. Screening today revealed the patient's blood pressure to be in the hypertensive range. Blood pressure screening was not performed during this visit because the patient has an active diagnosis of hypertension. The patient should follow up with a primary care provider for blood pressure management. Understanding of the discharge instructions verbalized by patient. Discharge instructions reviewed (grand-daughter). ADDITIONAL INFORMATION Head Injury, No Wake-Up (Adult) You have had a head injury. It does not appear serious at this time. Symptoms of a more serious problem (concussion, bruising, or bleeding in the brain) may appear later. Therefore, watch for the WARNING SIGNS listed below. Home Care: Your healthcare provider will tell you whether its okay to drive. If so, you can drive yourself home. For the next day or so, be careful when driving or using heavy machinery until you are sure you have no delayed symptoms. During the next 24 hours someone must stay with you to check for the signs below. It is not necessary to stay awake or be awakened during the night. If you have swelling of the face or scalp, apply an ice pack (ice cubes in a plastic bag, wrapped in a towel) for 20 minutes. Do this every 1-2 hours until the swelling starts to go down. Do not use aspirin or ibuprofen (Motrin, Advil) after a head injury.You may use acetaminophen (Tylenol)to control pain, unless another pain medicine was prescribed. [NOTE: If you have chronic liver or kidney disease or ever had a stomach ulcer or GI bleeding, talk with your doctor before using these medicines.] For the next 24 hours: Do not take alcohol, sedatives or medicines that make you sleepy. Avoid strenuous activities. No lifting or straining. If you have had any symptoms of a concussion today (nausea, vomiting, dizziness, confusion, headache, memory loss or if you were knocked out), do not return to sports or any activity that could result in another head injury until all symptoms are gone and you have been cleared by your doctor. A second head injury before fully recovering from the first one can lead to serious brain injury. Follow Up with your doctor if symptoms are not improving after 24 hours, or as directed. [NOTE: A radiologist will review any X-rays or CT scans that were taken. We will notify you of any new findings that may affect your care.] Get Prompt Medical Attention if any of the followingWARNING SIGNS occur: Repeated vomiting Severe or worsening headache or dizziness Unusual drowsiness, or unable to awaken as usual Confusion or change in behavior or speech, memory loss, blurred vision Convulsion (seizure) Increasing scalp or face swelling Redness, warmth or pus from the swollen area Fluid drainage or bleeding from the nose or ears Concussion (No Wake-Up) A concussion happens when you hit your head with enough force to shake up the brain. This may cause you to lose consciousness be "knocked out" - but not always. Depending on how hard you hit your head, it will take from a few hours up to a few days to get better. Sometimes symptoms may last a few months or longer. This is called post-concussion syndrome. At first, you may have a headache, nausea, vomiting, or dizziness. You may also have problems concentrating or remembering things. This is normal. Symptoms should get better as the hours and days go by. Symptoms that get worse could be a sign of a more serious injury. This might be a bruise or bleeding in the brain. Thats why its important to watch for the warning signs listed below. Home care Follow these tips to help care for yourself at home: During the next day (24 hours) someone must stay with you to check for the signs below. If your face or scalp swells, apply an ice pack for 20 minutes every 1 to 2 hours. Do this until the swelling starts to go down. You can make an ice pack by putting ice cubes in a plastic bag and wrapping the bag in a towel. for 20 minutes every 1-2 hours until the swelling starts to go down. You may use acetaminophen to control pain, unless another pain medicine was prescribed. If you have chronic liver or kidney disease, talk with your doctor before using these medicines. Also talk with your doctor if you ever had a stomach ulcer or GI bleeding. For the next 24 hours: Dont drink alcohol or take sedatives or medicines that make you sleepy. Dont drive or operate machinery. Avoid doing anything strenuous. Dont lift or strain. Dont return to sports or any activity that could cause you to hit your head until all symptoms are gone and you have been cleared by your doctor. A second head injury before fully recovering from the first one can lead to serious brain injury. Follow-up care Follow up with your doctor in 1 week, or as directed. Note: A radiologist will review any X-rays or CT scans that were taken. You will be told of any new findings that may affect your care. When to seek medical care Get prompt medical attention if any of these occur: Repeated vomiting Headache or dizziness that is severe or gets worse Unusual drowsiness, or unable to wake up as usual Confusion or change in behavior or speech, or memory loss Blurred vision Convulsion (seizure) Swelling on the scalp or face that gets worse Redness, warmth, or pus from the swollen area Fluid draining from or bleeding from the nose or ears Facial Contusion (With Wake-Up) A facial contusion is a bruise with swelling and sometimes bleeding under the skin. The swelling should start to go down within two days. Although there may be no signs of a serious injury at this time, symptoms may appear later which could be a sign of a more serious problem. Therefore, watch for the warning signs below. Home care The following guidelines will help you care for your injury at home: During the next 24 hours you must stay with someone who can watch you for the warning signs below. This person shouldwake you every two hoursto be sure that you can be awakened easily and that you respond normally. If you have swelling of the face, apply an ice pack (ice cubes in a plastic bag, wrapped in a towel) for 20 minutes every 12 hours until the swelling starts to go down. If you have scrapes or cuts on your face, clean them daily with soap and water. Apply an antibiotic ointment or cream for the first few days to prevent infection. You may use acetaminophen or ibuprofen to control pain, unless another pain medicine was prescribed.If you have chronic liver or kidney disease or ever had a stomach ulcer or GI bleeding, talk with your doctor before using these medicines. Do not use ibuprofen in children under six months of age. For the next 24 hours: Do not take alcohol, sedatives or medicines that make you sleepy. Do not drive or operate machinery. Avoid strenuous activities. No lifting or straining. If you have had any symptoms of aconcussiontoday (nausea, vomiting, dizziness, confusion, headache, memory loss or if you were knocked out), do not return to sports or any activity that could result in another head injury until all symptoms are gone and you have been cleared by your doctor. A second head injury before fully recovering from the first one can lead to serious brain injury. Follow-up care Follow up with your doctor in one week or as directed. Note:Any X-rays or CT scans taken will be reviewed by a radiologist. You will be notified of any new findings that may affect your care. When to seek medical care Get prompt medical attention if any of the following occur: Repeated vomiting Severe or worsening headache or dizziness Unusual drowsiness, or unable to awaken as usual Confusion or change in behavior or speech, memory loss, blurred vision Convulsion (seizure) Increasing scalp or face swelling Redness, warmth or pus from the swollen area Fluid drainage or bleeding from the nose or ears Fever of 100.4F (38C) or higher, or as directed by your health care provider Increasing jaw pain with chewing or increasing pain in the sinuses Nose looks crooked or cannot breathe through your nose after swelling goes down Dehydration (Adult) Dehydration occurs when your body loses too much fluid. This may be the result of vomiting a lot or from diarrhea,sweating a lot, or a high fever. It may also happen if you dont drink enough fluid when youre sick. Misuse of diuretics (water pills) can also be a cause. Symptoms include thirst and feeling dizzy, weak, fatigued, or very drowsy. The diet described below is usually enough to treat most cases. Sometimes you may needmedicine. Home Care Follow these guidelines for home care: Drink at least 12 8-ounce glasses of fluid every day to overcome the dehydration. Fluid may include water; orange juice; lemonade; apple, grape, and cranberry juice; clear fruit drinks; electrolyte replacement and sports drinks; and teas and coffee without caffeine. If you have been diagnosed with a kidney disease, ask your doctor how much and what types of fluids you should drink to prevent dehydration. If you have kidney disease, drinking too much fluid can cause it build up in the your body and be dangerous to your health. If you have fever, muscle aching, or headache from a viral syndrome, you may useacetaminophen or ibuprofen, unless another medicine was prescribed for this.If you have chronic liver or kidney disease or ever had a stomach ulcer or GI bleeding, talk with your doctor before using these medicines. Don't take aspirin if you are younger than 18 and are ill with a fever.Aspirin raises the chance forsevere liver injury. Follow-up care Follow up with your health care provider if you don't get better in the next 24 to 48 hours. When to seek medical care Get prompt medical attention if any of theseoccur: Continued vomiting (cant keep liquids down) Frequent diarrhea (more than 5 times a day); blood (red or black color) or mucus in diarrhea Blood in vomit or stool Swollen abdomen or increasing abdominal pain Weakness, dizziness, or fainting Unusually drowsy or confused Reduced urine output or extreme thirst Fever of 100.4 F (38 C) oral or higher that does not get better with fever medication Seizure:New Onset [Unknown Cause, Adult] You have had a seizure today. This results from a burst of electrical activity in the brain. A seizure can be due to many causes. It is often not possible to determine the exact cause of a seizure from a single exam and further testing may be needed. Having one seizure does not mean that you will continue to have seizures. However, until the cause of your seizure is known, it is best to assume that another seizure is possible. Home Care: For This Seizure: Since seizures are not predictable, you must avoid doing anything that might cause danger to you or others if you have another one. Therefore, do not drive a car, ride a bike or operate dangerous equipment, do not take a bath alone (use a shower instead), and do not swim alone until your doctor says that you are no longer in danger of having another seizure. Tell your close friends and relatives about your seizure and teach them what to do for you if it happens again. If you were prescribed a medicine to prevent seizures, take it exactly as directed. It does not work when taken on an "as needed" basis. Missing doses will increase the risk of having another seizure. For Future Seizures: If You Are Alone: If you feel a seizure coming on, the best thing to do is to lie down on a bed or on the floor with something soft under your head. Lie on your side, not on your back. This will prevent falling and permit drainage of fluid from the mouth to prevent choking. Be sure that you are clear of any objects that might injure you during the seizure. Call for help (911) if there is time. If Someone Is With You: If someone is with you before the seizure, they should help you get in a safe position and call for help (911). They should not try to force anything in your mouth once the seizure has begun. Doing this may cause injury to your teeth or jaw. After a seizure, you may be drowsy or confused. The person should remain with you until you are fully awake again. They should not offer anything to eat or drink during that time. Call 911 or go to the emergency department for further evaluation. Follow Up with your doctor as directed by our staff. Additional tests (brain wave tests or brain scans) may be ordered to help determine the cause of your seizure. Note: For the safety of yourself and others on the road, certain states require that the treating doctor inform the Public Health Department of any adult who is treated for a seizure and is at risk of further seizures. In this case, the Department of Motor Vehicles (DMV) will be notified and a restriction will be placed on your drivers license until a doctor gives you medical clearance to drive again. Contact your treating doctor to find out if your state requires the reporting of patients with a seizures condition. Get Prompt Medical Attention if any of the following occur: Another seizure Fever over 100.4F (38.0C) Unusual irritability, drowsiness or confusion Worsening headache or neck pain Hydrocodone Bitartrate, Acetaminophen Oral tablet What is this medicine? ACETAMINOPHEN; HYDROCODONE (a set a DAIN juliana fen; kaela droe KOE done) is a pain reliever. It is used to treat mild to moderate pain. How should I use this medicine? Take this medicine by mouth. Swallow it with a full glass of water. Follow the directions on the prescription label. If the medicine upsets your stomach, take the medicine with food or milk. Do not take more than you are told to take. Talk to your bin piler regarding the use of this medicine in children. This medicine is not approved for use in children. What side effects may I notice from receiving this medicine? Side effects that you should report to your doctor or health health care facility administrator as soon as possible: allergic reactions like skin rash, itching or hives, swelling of the face, lips, or tongue breathing problems confusion feeling faint or lightheaded, falls stomach pain yellowing of the eyes or skin Side effects that usually do not require medical attention (report to your doctor or health health care facility administrator if they continue or are bothersome): nausea, vomiting stomach upset What may interact with this medicine? alcohol antihistamines isoniazid medicines for depression, anxiety, or psychotic disturbances medicines for sleep muscle relaxants naltrexone narcotic medicines (opiates) for pain phenobarbital ritonavir tramadol What if I miss a dose? If you miss a dose, take it as soon as you can. If it is almost time for your next dose, take only that dose. Do not take double or extra doses. Where should I keep my medicine? Keep out of the reach of children. This medicine can be abused. Keep your medicine in a safe place to protect it from theft. Do not share this medicine with anyone. Selling or giving away this medicine is dangerous and against the law. Store at room temperature between 15 and 30 degrees C (59 and 86 degrees F). Protect from light. Keep container tightly closed. Throw away any unused medicine after the expiration date. Discard unused medicine and used packaging carefully. Pets and children can be harmed if they find used or lost packages. What should I tell my health care provider before I take this medicine? They need to know if you have any of these conditions: brain tumor Crohn's disease, inflammatory bowel disease, or ulcerative colitis drink more than 3 alcohol-containing drinks per day drug abuse or addiction head injury heart or circulation problems kidney disease or problems going to the bathroom liver disease lung disease, asthma, or breathing problems an unusual or allergic reaction to acetaminophen, hydrocodone, other opioid analgesics, other medicines, foods, dyes, or preservatives or trying to get breast-feeding What should I watch for while using this medicine? Tell your doctor or health health care facility administrator if your pain does not go away, if it gets worse, or if you have new or a different type of pain. You may develop tolerance to the medicine. Tolerance means that you will need a higher dose of the medicine for pain relief. Tolerance is normal and is expected if you take the medicine for a long time. Do not suddenly stop taking your medicine because you may develop a severe reaction. Your body becomes used to the medicine. This does NOT mean you are addicted. Addiction is a behavior related to getting and using a drug for a non-medical reason. If you have pain, you have a medical reason to take pain medicine. Your doctor will tell you how much medicine to take. If your doctor wants you to stop the medicine, the dose will be slowly lowered over time to avoid any side effects. You may get drowsy or dizzy when you first start taking the medicine or change doses. Do not drive, use machinery, or do anything that may be dangerous until you know how the medicine affects you. Stand or sit up slowly. There are different types of narcotic medicines (opiates) for pain. If you take more than one type at the same time, you may have more side effects. Give your health care provider a list of all medicines you use. Your doctor will tell you how much medicine to take. Do not take more medicine than directed. Call emergency for help if you have problems breathing. The medicine will cause constipation. Try to have a bowel movement at least every 2 to 3 days. If you do not have a bowel movement for 3 days, call your doctor or health health care facility administrator. Too much acetaminophen can be very dangerous. Do not take Tylenol (acetaminophen) or medicines that contain acetaminophen with this medicine. Many non-prescription medicines contain acetaminophen. Always read the labels carefully. You have been given the following additional information: HEAD INJURY, No Wake-Up (Adult) Concussion, No Wake-Up Facial Contusion, With Wakeup Dehydration (Adult) Seizure, New Onset, Unk Cause [Adult] Hydrocodone Bitartrate, Acetaminophen Oral tablet (Electronically signed by Sarkis Banda Dr. 05/14/2016 17:24)
== END 2016-05-12 15:12 | disposition home or self-care (01) ==
LOC: ED SRH 10:54
DX: S06.0X1A Concussion with loss of consciousness of 30 minutes or less, initial encounter (principal); S00.83XA Contusion of other part of head, initial encounter; R56.9 Unspecified convulsions; E86.0 Dehydration; W19.XXXA Unspecified fall, initial encounter; Y93.9 Activity, unspecified; Y99.8 Other external cause status; Y92.9 Unspecified place or not applicable; Z88.2 Allergy status to sulfonamides
CPT/HCPCS: 81460; 90004; 90074; 90100; 93140; 94001; 94060; 95059

== ENCOUNTER 2016-10-25 16:54 | Emergency (ER) | payer OTHER ==
--- NOTE | 2016-10-25 17:54 | DIAGNOSTIC IMAGING REPORT ---
PROCEDURE: CT CERVICAL SPINE W/O CONTRAST CLINICAL INDICATION: TRAUMA/INJURY TECHNIQUE: Noncontrast axial images with sagittal and coronal reformations. COMPARISON: Cervical spine CT scan 05/10/2016. FINDINGS: Stable grade 1 C2-3, C4-5 and S C6-7 anterolisthesis and appear severe C5-6 disc space narrowing with spur formation. No fracture or suspicious osseous lesion. Moderate left C3-4, left C4-5 and bilateral C5-6 foraminal stenosis. Paraspinal soft tissues are unremarkable. Lung apices are clear. IMPRESSION: 1. No fracture 2. Degenerative changes, most prominent at C5-6 3. Multilevel anterolisthesis and foraminal stenosis 4. Results discussed with Dr. Dc All CT scans at this facility use dose modulation, iterative reconstruction, and/or weight-based dosing when appropriate to reduce radiation dose to as low as reasonably achievable.
--- NOTE | 2016-10-25 18:02 | DIAGNOSTIC IMAGING REPORT ---
PROCEDURE: CT THORACIC SPINE W/O CONT INDICATION: TRAUMA/INJURY TECHNIQUE: Axial scans with coronal and sagittal re-formations. COMPARISON: None. FINDINGS: Normal alignment without fracture. Chronic small T3 superior endplate compression fracture pill Mild spur formation of the mid and distal thoracic spine with disc space narrowing. Small T6-7, T8-9, T9-10 and T10-11 disc bulges. Mild bilateral T10-11 foraminal stenosis. No spinal stenosis. Paraspinal soft tissues are normal . IMPRESSION: 1. No acute changes 2. Small chronic T3 superior endplate compression fracture 3. Degenerative changes 4. Results discussed with Dr. Dc
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
--- NOTE | 2016-10-25 18:55 | ED ORDER SUMMARY ---
..... Patient: AME DENNY OrderSheet [facility] VisitID: [id number] [address] [place] [address] 76y, F Registration Date/Time: 10/25/2016 ORDER SHEET Weight: 56.6 kg (stated) Allergies: Sulfa Antibiotics, Morphine and Related GENERAL ORDERS: CT Cervical Spine wo Cont Urgent (17:10/25/2016 Hans AMBROSIO) (Ack 17:12 Ryan) (17:28 Eric R.N.) CT Thoracic Spine wo Cont Urgent (17:10/25/2016 Hans AMBROSIO) (Ack 17:12 Ryan) (17:28 ROSSInebel R.N.) Soft Collar (17:10/25/2016 Hans AMBROSIO) (17:15 Eric R.N.) MEDICATION ORDERS: IV FLUIDS: ORDER SHEET NOTES: [Electronically signed by Hitesh Dc MD (19:10/25/2016)] [Electronically signed by Herminia Sweeney R.N. (21:10/25/2016)] [Electronically locked/signed by Herminia Sweeney R.N. (21:10/25/2016)]
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
--- NOTE | 2016-10-25 18:55 | ED ORDER SUMMARY ---
..... Patient: AME DENNY OrderSheet [facility] VisitID: [id number] [address] [place] [address] 76y, F Registration Date/Time: 10/25/2016 ORDER SHEET Weight: 56.6 kg (stated) Allergies: Sulfa Antibiotics, Morphine and Related GENERAL ORDERS: CT Cervical Spine wo Cont Urgent (17:10/25/2016 Hans AMBROSIO) (Ack 17:12 Ryan) (17:28 Eric R.N.) CT Thoracic Spine wo Cont Urgent (17:10/25/2016 Hans AMBROSIO) (Ack 17:12 Ryan) (17:28 ROSSInebel R.N.) Soft Collar (17:10/25/2016 Hans AMBROSIO) (17:15 Eric R.N.) MEDICATION ORDERS: IV FLUIDS: ORDER SHEET NOTES: [Electronically signed by Hitesh Dc MD (19:10/25/2016)] [Electronically signed by Herminia Sweeney R.N. (21:10/25/2016)] [Electronically locked/signed by Herminia Sweeney R.N. (21:10/25/2016)]
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
--- NOTE | 2016-10-25 21:18 | ED MED RECONCILIATION SUMMARY ---
Patient: AME DENNY Medication Reconciliation Report [facility] VisitID: [id number] [address] [place] [place] [address] 76y, F Registration Date/Time: 10/25/2016 Weight: 56.6 kg Height/Length: 63 in. BMI: 22.1 ALLERGIES: Morphine and Related, Sulfa Antibiotics The patient's Home Medications are listed below: CONTINUE TAKING THE FOLLOWING MEDICATIONS: Citalopram Hydrobromide Oral Effexor XR Oral Gabapentin Oral Hydrocodone Hydrocortisone Oral Levothyroxine Sodium Oral LINSINOPRIL Over the counter sleep medication Pravastatin Sodium Oral Vit D 3 The source(s) of the original Home Medication information: other past visist The following Medications were given to the patient in the Emergency Department: None. The following Medications were prescribed to the patient: None.
--- NOTE | 2016-10-25 21:18 | ED MED RECONCILIATION SUMMARY ---
Patient: AME DENNY Medication Reconciliation Report [facility] VisitID: [id number] [address] [place] [address] 76y, F Registration Date/Time: 10/25/2016 Weight: 56.6 kg Height/Length: 63 in. BMI: 22.1 ALLERGIES: Morphine and Related, Sulfa Antibiotics The patient's Home Medications are listed below: CONTINUE TAKING THE FOLLOWING MEDICATIONS: Citalopram Hydrobromide Oral Effexor XR Oral Gabapentin Oral Hydrocodone Hydrocortisone Oral Levothyroxine Sodium Oral LINSINOPRIL Over the counter sleep medication Pravastatin Sodium Oral Vit D 3 The source(s) of the original Home Medication information: other past visist The following Medications were given to the patient in the Emergency Department: None. The following Medications were prescribed to the patient: None.
--- NOTE | 2016-10-25 21:18 | ED DISCHARGE INSTRUCTIONS ---
Patient: AME DENNY General Instructions [facility] VisitID: [id number] [place] [address] 76y, F Registration Date/Time: 10/25/2016 Acute cervical strain. Contusion to the posterior chest. INSTRUCTIONS Apply ice for 20 minutes four times a day for two days until better. Don't apply ice directly to skin and don't use while asleep. Warnings: GENERAL WARNINGS: Return or contact your physician immediately if your condition worsens or changes unexpectedly, if not improving as expected, or if other problems arise. Your Current Medications: CONTINUE TAKING THE FOLLOWING MEDICATIONS: Citalopram Hydrobromide Oral. Effexor XR Oral. Gabapentin Oral. Hydrocodone*. Hydrocortisone Oral. Levothyroxine Sodium Oral. LINSINOPRIL*. Over the counter sleep medication*. Pravastatin Sodium Oral. Vit D 3*. Understanding of the discharge instructions verbalized by patient and family. ADDITIONAL INFORMATION Neck Sprain Or Strain A sudden force that causes turning or bending of the neck (such as in a car accident) can stretch or tear muscles (strain) and ligaments (sprain) and cause neck pain. Sometimes neck pain occurs after a simple awkward movement. In either case, muscle spasm is commonly present and contributes to the pain. Unless you had a forceful physical injury (for example, a car accident or fall), X-rays are usually not ordered for the initial evaluation of neck pain. If pain continues and dose not respond to medical treatment, X-rays and other tests may be performed at a later time. Home care The following guidelines will help you care for your injury at home: You may feel more soreness and spasm the first few days after the injury. Reduce your activity level until symptoms begin to improve. When lying down, use a comfortable pillow that supports the head and keeps the spine in a neutral position. The position of the head should not be tilted forward or backward. Use ice packs (ice in a plastic bag, wrapped in a towel) to treat acute pain. Apply for 20 minutes every 24 hours during the first two days. Then, begin local heat (hot shower, hot bath or heating pad) andmassageto reduce muscle spasm. Some patients feel best alternating hot and cold treatments, or just staying with one method only. Do what feels the best to you and gives the most relief. You may use acetaminophen or ibuprofen to control pain, unless another pain medicine was prescribed.If you have chronic liver or kidney disease or ever had a stomach ulcer or GI bleeding, talk with your doctor before using these medicines. Follow-up care Follow up with your physician or this facility if your symptoms do not show signs of improvement. Physical therapy may be needed. If you had X-rays today, they didnt show any broken bones, breaks, or fractures. Sometimes fractures dont show up on the first X-ray. Bruises and sprains can sometimes hurt as much as a fracture. These injuries can take time to heal completely. If your symptoms dont improve or they get worse, talk with your doctor. You may need a repeat X-ray. When to seek medical care Get prompt medical attention if any of the following occur: Pain becomes worse or spreads into your arms Weakness or numbness in one or both arms Contusion, Back You have a CONTUSION of the back. This is a bruise with swelling and some bleeding under the skin. There are no broken bones. This injury takes a few days to a few weeks to heal. It is normal to feel muscle stiffness and aching in the area of injury the next day. Home Care: 1) Rest and relax your back muscles until you are feeling better. 2) Apply an ice pack (crushed or cubed ice in a plastic bag, wrapped in a towel) for 20 minutes every 2-4 hours during the first two days after a new injury. Local heat (hot shower, hot bath or heating pad) and massage will help reduce muscle spasm . Some patients feel best alternating treatments. Use the method that feels best to you for. 3) You may use acetaminophen (Tylenol) or ibuprofen (Motrin, Advil) to control pain, unless another pain medicine was prescribed. [ NOTE : If you have chronic liver or kidney disease or ever had a stomach ulcer or GI bleeding, talk with your doctor before using these medicines.] Follow Up with your doctor or this facility if your symptoms do not start to improve after three days. [NOTE: If X-rays were taken, they will be reviewed by a radiologist. You will be notified of any new findings that may affect your care.] Get Prompt Medical Attention if any of the following occur: -- Pain becomes worse or spreads to one or both legs -- Weakness or numbness in one or both legs -- Loss of bowel or bladder control -- Numbness in the groin or genital area -- Redness, warmth or drainage from the skin You have been given the following additional information: Neck Sprain/Strain Contusion, Back (Electronically signed by Hitesh Dc MD 10/25/2016 19:17)
--- NOTE | 2016-10-25 21:18 | ED MAR SUMMARY ---
..... Medication Administration Record [facility] [address], [place] [id number] Patient: AME DENNY Visit ID: [id number] 76y, F Weight: 56.6 kg Height/Length: 63 in BMI: 22.1 ALLERGIES: Morphine and Related, Sulfa Antibiotics
--- NOTE | 2016-10-25 21:18 | ED MAR SUMMARY ---
..... Medication Administration Record [facility] [address] [place], [place] [id number] Patient: AME DENNY Visit ID: [id number] 76y, F Weight: 56.6 kg Height/Length: 63 in BMI: 22.1 ALLERGIES: Morphine and Related, Sulfa Antibiotics
== END 2016-10-25 19:18 | disposition home or self-care (01) ==
LOC: ED SRH 16:54
DX: S16.1XXA Strain of muscle, fascia and tendon at neck level, initial encounter (principal); S20.229A Contusion of unspecified back wall of thorax, initial encounter; W20.8XXA Other cause of strike by thrown, projected or falling object, initial encounter; Y93.9 Activity, unspecified; Y99.9 Unspecified external cause status; Y92.128 Other place in nursing home as the place of occurrence of the external cause; I10 Essential (primary) hypertension; E78.5 Hyperlipidemia, unspecified; E07.9 Disorder of thyroid, unspecified; Z88.1 Allergy status to other antibiotic agents